=== PATIENT | male | born 1950 | race Caucasian/White ===

== ENCOUNTER → 2021-09-09 14:51 | Outpatient (BNVA) | payer MEDICARE, SELFPAY | PROVIDERS: PCP Physician Assistant; Visit Provider Psychiatry & Neurology Neurology | DX: G20 Parkinson's disease (principal); G47.52 REM sleep behavior disorder | CPT/HCPCS: 99212 ==

== ENCOUNTER → 2022-01-13 13:40 | Outpatient (BNVA) | payer MEDICARE, SELFPAY | PROVIDERS: PCP Physician Assistant; Visit Provider Psychiatry & Neurology Neurology | DX: G20 Parkinson's disease (principal); G47.52 REM sleep behavior disorder; K11.7 Disturbances of salivary secretion; F41.9 Anxiety disorder, unspecified; R42 Dizziness and giddiness | CPT/HCPCS: 99212 ==

== ENCOUNTER → 2022-03-06 15:22 | Outpatient (BNVA) | payer MEDICARE, SELFPAY | PROVIDERS: PCP Physician Assistant; Visit Provider Psychiatry & Neurology Neurology | DX: G20 Parkinson's disease (principal); G47.52 REM sleep behavior disorder; K11.7 Disturbances of salivary secretion; F41.9 Anxiety disorder, unspecified; R42 Dizziness and giddiness | CPT/HCPCS: 99212 ==

== ENCOUNTER → 2022-06-26 08:19 | Outpatient (BNVA) | payer MEDICARE, SELFPAY | PROVIDERS: PCP Physician Assistant; Visit Provider Psychiatry & Neurology Neurology | DX: K11.7 Disturbances of salivary secretion (principal) | CPT/HCPCS: 64611; 99211; J0585 ==

== ENCOUNTER → 2022-08-16 15:46 | Outpatient (BNVA) | payer MEDICARE, SELFPAY | PROVIDERS: PCP Physician Assistant; Visit Provider Psychiatry & Neurology Neurology | DX: G20 Parkinson's disease (principal); G47.52 REM sleep behavior disorder; K11.7 Disturbances of salivary secretion; F41.9 Anxiety disorder, unspecified; R42 Dizziness and giddiness | CPT/HCPCS: 99212 ==

== ENCOUNTER → 2022-10-25 07:16 | Outpatient (BNVA) | payer MEDICARE, SELFPAY | PROVIDERS: PCP Physician Assistant; Visit Provider Psychiatry & Neurology Neurology | DX: K11.7 Disturbances of salivary secretion (principal) | CPT/HCPCS: 64611; 99211; J0585 ==

== ENCOUNTER 2022-12-18 13:50 | Outpatient (AMB) | payer MEDICARE, SELFPAY ==
--- NOTE | 2022-12-18 13:52 | A.OFFVIS_ITS ---
Intake Vital Signs 12/18/22 13:53 Height 6 ft Weight 174 lb 6 oz BMI 23.6 BP 96/62 Blood Pressure Location Rt brachial Position Sitting Pulse 63 Pulse Source Pulse Oximeter Pulse Oximetry (%) 97 Oxygen Delivery Method Room Air Intake Visit Reasons: 4 mo f/u - Parkinson-lvm Intake Note: Patient presents for 4 month follow up Allergies No Known Allergies Allergy (Verified 12/18/22 13:54) Medication List - Last Reconciled 12/18/22 by Mary Amin MD carbidopa-levodopa 25-100 mg 2 tabs 7am,11am,3pm,7pm fluticasone propionate 50 mcg/actuation (Flonase Allergy Relief) 1 spray intranasal DAILY lorazepam 0.5 mg PO BID PRN MDD 2tabs magnesium oxide 400 mg PO BEDTIME onabotulinumtoxinA (Botox) to be injected by physician to salivary glands; polyethylene glycol 3350 (Miralax) 17 grams PO DAILY PRN venlafaxine ER (Effexor XR) 37.5 mg PO DAILY HPI HPI Comments History of Present Illness Details 72y/o male comes for follow up of parkinsons, REM behavior disorder.He reports excessive drooling. he reports difficulty sleeping due to leg cramps- he gets up walks .He wakes up 4 times a night. He is able to go back to sleep. His drooling decreased. No falls. speech is softer. He is independent in all his ADLs. He feels he does not feel good because of dizziness. 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 Mood is stable Memory is good No hallucinations He went to vestibular therapy for his vertigo and it helped. He also reports pain and stiffness in his extremities He does not exercise regularly [facility] Medical History Anxiety Arthritis Parkinson's disease REM behavioral disorder Tremors of nervous system Vertigo Surgical History Hx of bilateral hip replacements Family History Father Cancer Mother Depression Dementia Social History Household Members: Spouse Alcohol intake: former Patient Tobacco Use Status: Never used Tobacco Physical Exam Vital Signs: Last Vital Signs Pulse 63 12/18/22 13:53 BP 96/62 12/18/22 13:53 Pulse Ox 97 12/18/22 13:53 Oxygen Delivery Method Room Air 12/18/22 13:53 BMI result Body Mass Index 23.6 Const Orientation/consciousness: patient oriented x3 Neuro Other: UPDRS - 3 Severely decreased facial expression Speech 2.Monotone,slurred but understandable,moderately impaired Facial expression 0-normal 1-Minimal hypomimia, poker face 2-Slight but definite abnormal diminution of facial expression 3-Moderate hypomimia,lips parted some of the time 4-Masked or fixed facies withs evere loss of facialexpression, lips parted more than 1/4 inch Rest Tremors( head, Upper, lower ) 0- absent 1-Slight and infrequent 2-Mild in amplitude and persistent Left UE 3-Moderate in amplitude and present most of the time 4-Marked amplitude and present most of the time Action and Postural tremors 0-none 1-Slight with action 2-Moderate with action 3-Moderate with posture and action 4-Marked , interferes with feeding Rigidity 0-Absent 1-Slight or detectable only when activated by mirror movements 2-Mild to Moderate L>R 3-Marked, but full ROM achieved L>R 4-Severe, range of motion achieved with difficulty Finger Taps 0-normal 1-Mild slowing an gaby reductionin amplitude 2-Moderately impaired. Early fatiguing and occasional arrests in movement L>R 3-Severely impaired. Frequent hesitation in initiating movements or arrests in ongoing movement. 4-can barely perform the task Hand movements 0-normal 1-mild slowing and or reduction in amplitude 2-Moderately impaired.Definite and early fatiguing, may have occasional arrests in movement. 3-Severely impaired.Frequent hesitation in initiating or arrests in movement.L>R 4-can barely perform the task Rapid Alternating Movements of Hands 0-normal 1-Mild slowing and or reduction in amplitude 2-Moderately impaired.Definite and early fatiguing. 2-Moderately impaired. Definite and early fatiguing. May have occasional arrests in movement. 3-severely impaired.Frequent hesitation in initiating movements or arrests in ongoing movement. 4-can barely perform the task Leg agility 0-normal 1-mild slowing and reduction in amplitude 2-moderately impaired.Definite and early fatiguing , may have occasional arrest in movement. 3-severely impaired.Frequent hesitation in initiating movements or arrests in ongoing movement. 4-can barely perform the task Arising from a chair 0-Normal 1-Slow or may need more than 1 attempt 2-Pushes self up from arms of seat 3-Tends to fall back and may have to try more than one time,but can get up without difficulty 4-Unable to stand without help Posture 0-normal 1-slightly stooped, could be normal for an older person 2-moderately stooped posture, definitely abnormal, can be leaning to one side 3-severely stooped posture with kyphosis, can be moderately leaning to one side 4-Marked flexion with extreme abnormal posture Gait 0-normal 1-walks slowly,may shuffle with short steps, but no festination or propulsion 2-walks with difficulty,but requires little or no assistance, may have short steps, festination or propulsion 3-severe, needs assistance 4-cannot walk even with assistance Postural stability 0-normal 1-retropulsion but recovers unaided 2-absence of postural response,will fail if not caught by the examiner 3-very unstable,tends to lose balance spontaneously 4-unable to stand without assistance Body bradykinesia and hypokinesia 0-none 1-minimal slowness,giving movement a deliberate character,could be normal for some persons.Possible reduced amplitude 2-Mild degree of slowness and poverty of movement or some reduced amplitude 3-moderate slowness,poverty or small amplitude of movement 4-marked slowness, poverty or small amplitude of movement. General: patient oriented x3 Assessment & Plan Assessment & Plan (1) Parkinson's disease: Code(s): G20 - Parkinson's disease (2) REM behavioral disorder: Code(s): G47.52 - REM sleep behavior disorder Plan: he stopped melatonin - says his episodes are not as frequent (3) Drooling: Code(s): K11.7 - Disturbances of salivary secretion (4) Anxiety: Code(s): F41.9 - Anxiety disorder, unspecified (5) Dizziness: Code(s): R42 - Dizziness and giddiness Plan: orthostatic hypotension vs vertigo Plan sinemet 25/100 2 tabs qid - take last dose at 8pm instead of 7pm Increase caffiene and salt intake Continue botox for drooling Flonase for rhinorrhea Increase physical activity Medications: New magnesium oxide 400 mg PO BEDTIME 30 caps 6RF Changed From carbidopa-levodopa 25-100 mg orally; 1 tab at 7am 3pm 1.5 tabs 11am 7pm 150 tabs 6RF To carbidopa-levodopa 25-100 mg 2 tabs 7am,11am,3pm,7pm 240 tabs 6RF Coding Level of Care Code Est Pt Level 4 (80868) Diagnoses Parkinson's disease G20 REM behavioral disorder G47.52 Drooling K11.7 Anxiety F41.9 Dizziness R42
[2022-12-18 13:53] VITALS: BP 96/62; PULSE 63; O2SAT 97; BMI 23.6
== END 2022-12-18 14:16 | disposition home or self-care (01) ==
PROVIDERS: Visit Provider Psychiatry & Neurology Neurology
DX: G20 Parkinson's disease (principal); G47.52 REM sleep behavior disorder; K11.7 Disturbances of salivary secretion; F41.9 Anxiety disorder, unspecified; R42 Dizziness and giddiness
CPT/HCPCS: 99214

== ENCOUNTER → 2022-12-18 13:50 | Outpatient (BNVA) | payer MEDICARE, SELFPAY | PROVIDERS: Visit Provider Psychiatry & Neurology Neurology | DX: G20 Parkinson's disease (principal); G47.52 REM sleep behavior disorder; K11.7 Disturbances of salivary secretion; R42 Dizziness and giddiness; F41.9 Anxiety disorder, unspecified; Z96.643 Presence of artificial hip joint, bilateral | CPT/HCPCS: 99212 ==

== ENCOUNTER 2023-01-30 07:26 | Outpatient (AMB) | payer MEDICARE, SELFPAY ==
--- NOTE | 2023-01-30 07:30 | MHC.OFFVIS ---
Intake Vital Signs 01/30/23 07:35 Weight 166 lb 8 oz BP 130/88 Blood Pressure Location Rt brachial Position Sitting Pulse 60 Pulse Source Pulse Oximeter Pulse Oximetry (%) 100 Oxygen Delivery Method Room Air Intake Visit Reasons: Botox-confirmed Intake Note: Botox Injection, patient states he is super dizzy, also now has a pacemaker. [employer] Technical Operations Officer Required: No Allergies No Known Allergies Allergy (Verified 01/30/23 07:31) Medication List - Last Reconciled 01/30/23 by Mary Amin MD carbidopa-levodopa 25-100 mg 2 tabs 7am,11am,3pm,7pm fluticasone propionate 50 mcg/actuation (Flonase Allergy Relief) 1 spray intranasal DAILY lorazepam 0.5 mg PO BID PRN MDD 2tabs metoprolol tartrate 25 mg PO BID onabotulinumtoxinA (Botox) to be injected by physician to salivary glands; polyethylene glycol 3350 (Miralax) 17 grams PO DAILY PRN venlafaxine ER (Effexor XR) 75 mg PO DAILY HPI HPI Comments History of Present Illness Details 72y/o male comes for treatment of siallorhea with botox Botulinum toxin type A 100 units Lot no C [id number] Exp 01/2025 was diluted with 1 cc of normal saline at a concentration of 10 units in 0.1 cc. Side effects were discussed and an informed consent was obtained. Bilateral Parotid glands - 30 units each Bilateral submandibular glands 20 units each Total used- 100 units PFSH Medical History Pacemaker Anxiety Vertigo Parkinson's disease REM behavioral disorder Tremors of nervous system Arthritis Surgical History Hx of bilateral hip replacements Family History Father Cancer Mother Depression Dementia Social History Household Members: Spouse Alcohol intake: former Patient Tobacco Use Status: Never used Tobacco Physical Exam Vital Signs: Last Vital Signs Pulse 60 01/30/23 07:35 BP 130/88 01/30/23 07:35 Pulse Ox 100 01/30/23 07:35 Oxygen Delivery Method Room Air 01/30/23 07:35 Const General: cooperative, healthy appearing and comfortable HEENT Head: Yes normal to inspection and Yes normocephalic Office Procedures Botulinum toxin Injection 32225 - Salivary Glands Procedure code (CPT) selection complete Office Meds onabotulinumtoxinA 100 unit solution for injection Performing Provider: Mary Amin MD Performing Location: [facility] Administered by: Mary Amin MD on 01/30/23 09:14 Dose Route Admin Location Dispensed Lot Number Expiration Date [facility] Fluid Designer 100 unit subcut 100 units [id number] 01/12/25 1750-6444-51 ALLERGAN/BOTOX Comments: see hpi Assessment & Plan Assessment & Plan (1) Drooling: Code(s): K11.7 - Disturbances of salivary secretion Plan Patient tolerated the procedure well she will call with another side effects Orders: Orders AMB Botulinum toxin Injection Today K11.7 - Disturbances of salivary secretion Coding Level of Care Code Est Pt Level 1 (54184) Diagnoses Drooling K11.7 CPT Codes Botox Injection - Botox1: 72919 - Salivary Glands ([id number])
[2023-01-30 07:35] VITALS: BP 130/88; PULSE 60; O2SAT 100
== END 2023-01-30 08:12 | disposition home or self-care (01) ==
PROVIDERS: PCP Physician Assistant; Visit Provider Psychiatry & Neurology Neurology
DX: K11.7 Disturbances of salivary secretion (principal)
CPT/HCPCS: 64611

== ENCOUNTER → 2023-01-30 07:26 | Outpatient (BNVA) | payer MEDICARE, SELFPAY | PROVIDERS: PCP Physician Assistant; Visit Provider Psychiatry & Neurology Neurology | DX: K11.7 Disturbances of salivary secretion (principal) | CPT/HCPCS: 64611; 99211; J0585 ==

== ENCOUNTER 2023-03-12 14:36 | Outpatient (AMB) | payer MEDICARE, SELFPAY ==
--- NOTE | 2023-03-12 14:52 | MHC.OFFVIS ---
Intake Vital Signs 03/12/23 14:53 Height 6 ft Weight 164 lb 6 oz BMI 22.3 BP 122/64 Blood Pressure Location Lt brachial Position Sitting Respiration 17 Pulse 61 Pulse Source Pulse Oximeter Pulse Oximetry (%) 99 Oxygen Delivery Method Room Air Intake Visit Reasons: follow up (per MD)-CONFIRMED Intake Note: Pt presents to office for 1 month follow up for drooling. Pt is here with [place]. SHe reports he has been very anxious. SHe thinks it may be related to his carbidopa, since they've adjusted his anxiety meds and still have not seen a change. He is drooling excessively. Allergies No Known Allergies Allergy (Verified 03/12/23 14:53) Medication List - Last Reconciled 03/12/23 by Mary Amin MD carbidopa-levodopa 25-100 mg 2 tabs 7am,11am,3pm,7pm escitalopram oxalate 20 mg PO DAILY fluticasone propionate 50 mcg/actuation (Flonase Allergy Relief) 1 spray intranasal DAILY lorazepam 0.5 mg PO BID PRN MDD 2tabs metoprolol tartrate 25 mg PO BID onabotulinumtoxinA (Botox) to be injected by physician to salivary glands; polyethylene glycol 3350 (Miralax) 17 grams PO DAILY PRN HPI HPI Comments History of Present Illness Details 72y/o male comes for follow up of parkinsons, REM behavior disorder. He reports increasing anxiety with panic attacks in the last 3 weeks . His effexor was tapered and he was started on escitalopram 20mg qd. He reports increased dizziness throughout the day. botox did not help with drooling. he reports difficulty sleeping due to leg cramps- he gets up walks .He wakes up 4 times a night. He is able to go back to sleep. His drooling decreased. No falls. speech is softer. He is independent in all his ADLs. He feels he does not feel good because of dizziness. 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 Mood is stable Memory is good No hallucinations He went to vestibular therapy for his vertigo and it helped. He also reports pain and stiffness in his extremities He does not exercise regularly [facility] Medical History Pacemaker Anxiety Vertigo Parkinson's disease REM behavioral disorder Tremors of nervous system Arthritis Surgical History Hx of bilateral hip replacements Family History Father Cancer Mother Depression Dementia Social History Household Members: Spouse Alcohol intake: former Patient Tobacco Use Status: Never used Tobacco Physical Exam Vital Signs: Last Vital Signs Pulse 61 03/12/23 14:53 Resp 17 03/12/23 14:53 BP 122/64 03/12/23 14:53 Pulse Ox 99 03/12/23 14:53 Oxygen Delivery Method Room Air 03/12/23 14:53 BMI result Body Mass Index 22.3 Const General: cooperative Orientation/consciousness: patient oriented x3 Neuro Other: UPDRS - 3 Severely decreased facial expression, antecollis, restricted range of motion neck Speech 2.Monotone,slurred but understandable,moderately impaired Facial expression 0-normal 1-Minimal hypomimia, poker face 2-Slight but definite abnormal diminution of facial expression 3-Moderate hypomimia,lips parted some of the time 4-Masked or fixed facies withs evere loss of facialexpression, lips parted more than 1/4 inch Rest Tremors( head, Upper, lower ) 0- absent 1-Slight and infrequent 2-Mild in amplitude and persistent Left UE 3-Moderate in amplitude and present most of the time 4-Marked amplitude and present most of the time Action and Postural tremors 0-none 1-Slight with action 2-Moderate with action 3-Moderate with posture and action 4-Marked , interferes with feeding Rigidity 0-Absent 1-Slight or detectable only when activated by mirror movements 2-Mild to Moderate L>R 3-Marked, but full ROM achieved L>R 4-Severe, range of motion achieved with difficulty Finger Taps 0-normal 1-Mild slowing an gaby reductionin amplitude 2-Moderately impaired. Early fatiguing and occasional arrests in movement L>R 3-Severely impaired. Frequent hesitation in initiating movements or arrests in ongoing movement. 4-can barely perform the task Hand movements 0-normal 1-mild slowing and or reduction in amplitude 2-Moderately impaired.Definite and early fatiguing, may have occasional arrests in movement. 3-Severely impaired.Frequent hesitation in initiating or arrests in movement.L>R 4-can barely perform the task Rapid Alternating Movements of Hands 0-normal 1-Mild slowing and or reduction in amplitude 2-Moderately impaired.Definite and early fatiguing. 2-Moderately impaired. Definite and early fatiguing. May have occasional arrests in movement. 3-severely impaired.Frequent hesitation in initiating movements or arrests in ongoing movement. 4-can barely perform the task Leg agility 0-normal 1-mild slowing and reduction in amplitude 2-moderately impaired.Definite and early fatiguing , may have occasional arrest in movement. 3-severely impaired.Frequent hesitation in initiating movements or arrests in ongoing movement. 4-can barely perform the task Arising from a chair 0-Normal 1-Slow or may need more than 1 attempt 2-Pushes self up from arms of seat 3-Tends to fall back and may have to try more than one time,but can get up without difficulty 4-Unable to stand without help Posture 0-normal 1-slightly stooped, could be normal for an older person 2-moderately stooped posture, definitely abnormal, can be leaning to one side 3-severely stooped posture with kyphosis, can be moderately leaning to one side 4-Marked flexion with extreme abnormal posture Gait 0-normal 1-walks slowly,may shuffle with short steps, but no festination or propulsion 2-walks with difficulty,but requires little or no assistance, may have short steps, festination or propulsion 3-severe, needs assistance 4-cannot walk even with assistance Postural stability 0-normal 1-retropulsion but recovers unaided 2-absence of postural response,will fail if not caught by the examiner 3-very unstable,tends to lose balance spontaneously 4-unable to stand without assistance Body bradykinesia and hypokinesia 0-none 1-minimal slowness,giving movement a deliberate character,could be normal for some persons.Possible reduced amplitude 2-Mild degree of slowness and poverty of movement or some reduced amplitude 3-moderate slowness,poverty or small amplitude of movement 4-marked slowness, poverty or small amplitude of movement. General: patient oriented x3 Assessment & Plan Assessment & Plan (1) Parkinson's disease: Code(s): G20 - Parkinson's disease (2) REM behavioral disorder: Code(s): G47.52 - REM sleep behavior disorder Plan: he stopped melatonin - says his episodes are not as frequent (3) Drooling: Code(s): K11.7 - Disturbances of salivary secretion (4) Anxiety: Code(s): F41.9 - Anxiety disorder, unspecified (5) Dizziness: Code(s): R42 - Dizziness and giddiness Plan: orthostatic hypotension vs vertigo Plan Decrease sinemet 25/100 1.5 tabs qid - take last dose at 8pm instead of 7pm Increase caffiene and salt intake D/C botox for drooling Flonase for rhinorrhea Increase physical activity will trial him on clonazepam 0.5 mg qhs Medications: New clonazepam 1/2 tab administer 30 minutes before bedtime for 1 week and then 1 tab at bedtime 0.5 mg PO BEDTIME 30 tabs 2RF Changed From carbidopa-levodopa 25-100 mg 2 tabs 7am,11am,3pm,7pm 240 tabs 6RF To carbidopa-levodopa 25-100 mg 1.5 tabs 7am,11am,3pm,7pm 240 tabs 6RF Coding Level of Care Code Est Pt Level 4 (71638) Diagnoses Parkinson's disease G20 REM behavioral disorder G47.52 Drooling K11.7 Anxiety F41.9 Dizziness R42
[2023-03-12 14:53] VITALS: BP 122/64; PULSE 61; RESP 17; O2SAT 99; BMI 22.3
== END 2023-03-12 15:23 | disposition home or self-care (01) ==
PROVIDERS: PCP Physician Assistant; Visit Provider Psychiatry & Neurology Neurology
DX: G20.A1 Parkinson's disease without dyskinesia, without mention of fluctuations (principal); G47.52 REM sleep behavior disorder; K11.7 Disturbances of salivary secretion; F41.9 Anxiety disorder, unspecified; R42 Dizziness and giddiness
CPT/HCPCS: 99214

== ENCOUNTER → 2023-03-12 14:36 | Outpatient (BNVA) | payer MEDICARE, SELFPAY | PROVIDERS: PCP Physician Assistant; Visit Provider Psychiatry & Neurology Neurology | DX: G20.A1 Parkinson's disease without dyskinesia, without mention of fluctuations (principal); K11.7 Disturbances of salivary secretion; F41.9 Anxiety disorder, unspecified; R42 Dizziness and giddiness; G47.52 REM sleep behavior disorder | CPT/HCPCS: 99212 ==

== ENCOUNTER 2023-04-19 15:24 | Outpatient (AMB) | payer MEDICARE, SELFPAY ==
--- NOTE | 2023-04-19 15:30 | A.OFFVIS_ITS ---
Intake Vital Signs 04/19/23 15:31 Height 6 ft Weight 169 lb BMI 22.9 BP 98/62 Blood Pressure Location Rt brachial Position Sitting Respiration 16 Pulse 63 Pulse Source Pulse Oximeter Pulse Oximetry (%) 97 Oxygen Delivery Method Room Air Intake Visit Reasons: 4m f/u Parkinson - LVM Intake Note: Pt reports to the office for 4 month follow up for Parkinson's. Pt states he has been lousy, I'm always anxious and drooling . [employer] Required: No Allergies No Known Allergies Allergy (Verified 04/19/23 15:31) Medication List - Last Reconciled 04/19/23 by Mary Amin MD carbidopa-levodopa 25-100 mg 2 tabs PO QID clonazepam 0.5 mg PO BEDTIME droxidopa 100 mg PO TID escitalopram oxalate 20 mg PO DAILY fluticasone propionate 50 mcg/actuation (Flonase Allergy Relief) 1 spray intranasal DAILY glycopyrrolate 1 mg PO BID-TID PRN lorazepam 0.5 mg PO BID PRN MDD 2tabs metoprolol tartrate 25 mg PO BID polyethylene glycol 3350 (Miralax) 17 grams PO DAILY PRN HPI HPI Comments History of Present Illness Details 72y/o male comes for follow up of parveen sons, REM behavior disorder. He reports milder anxiety with clonazepam - usually in the evenings . He did not tolerate decrease in carbidopa/levodopa - his symptoms worsened ( he had more pain in his UE and legs) so he increased it back to 2 tab 4 times a day. His effexor was tapered and he was started on escitalopram 20mg qd. He reports increased dizziness throughout the day. He reports generalized weakness and generalized dizziness. botox did not help with drooling. he reports difficulty sleeping due to leg cramps- he gets up walks .He wakes up 4 times a night. He is able to go back to sleep. His drooling decreased. No falls. speech is softer. He is independent in all his ADLs. 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 Mood is stable Memory is good No hallucinations He went to vestibular therapy for his vertigo and it helped. He also reports pain and stiffness in his extremities He does not exercise regularly [facility] Medical History Pacemaker Anxiety Vertigo Parkinson's disease REM behavioral disorder Tremors of nervous system Arthritis Surgical History Hx of bilateral hip replacements Family History Father Cancer Mother Depression Dementia Social History Household Members: Spouse Alcohol intake: former Patient Tobacco Use Status: Never used Tobacco Physical Exam Vital Signs: Last Vital Signs Pulse 63 04/19/23 15:31 Resp 16 04/19/23 15:31 BP 98/62 04/19/23 15:31 Pulse Ox 97 04/19/23 15:31 Oxygen Delivery Method Room Air 04/19/23 15:31 BMI result Body Mass Index 22.9 Const General: cooperative Orientation/consciousness: patient oriented x3 Neuro Other: UPDRS - 3 Severely decreased facial expression, antecollis, restricted range of motion neck Speech 2.Monotone,slurred but understandable,moderately impaired Facial expression 0-normal 1-Minimal hypomimia, poker face 2-Slight but definite abnormal diminution of facial expression 3-Moderate hypomimia,lips parted some of the time 4-Masked or fixed facies withs evere loss of facialexpression, lips parted more than 1/4 inch Rest Tremors( head, Upper, lower ) 0- absent 1-Slight and infrequent 2-Mild in amplitude and persistent Left UE 3-Moderate in amplitude and present most of the time 4-Marked amplitude and present most of the time Action and Postural tremors 0-none 1-Slight with action 2-Moderate with action 3-Moderate with posture and action 4-Marked , interferes with feeding Rigidity 0-Absent 1-Slight or detectable only when activated by mirror movements 2-Mild to Moderate L>R 3-Marked, but full ROM achieved L>R 4-Severe, range of motion achieved with difficulty Finger Taps 0-normal 1-Mild slowing an gaby reductionin amplitude 2-Moderately impaired. Early fatiguing and occasional arrests in movement L>R 3-Severely impaired. Frequent hesitation in initiating movements or arrests in ongoing movement. 4-can barely perform the task Hand movements 0-normal 1-mild slowing and or reduction in amplitude 2-Moderately impaired.Definite and early fatiguing, may have occasional arrests in movement. 3-Severely impaired.Frequent hesitation in initiating or arrests in movement.L>R 4-can barely perform the task Rapid Alternating Movements of Hands 0-normal 1-Mild slowing and or reduction in amplitude 2-Moderately impaired.Definite and early fatiguing. 2-Moderately impaired. Definite and early fatiguing. May have occasional arrests in movement. 3-severely impaired.Frequent hesitation in initiating movements or arrests in ongoing movement. 4-can barely perform the task Leg agility 0-normal 1-mild slowing and reduction in amplitude 2-moderately impaired.Definite and early fatiguing , may have occasional arrest in movement. 3-severely impaired.Frequent hesitation in initiating movements or arrests in ongoing movement. 4-can barely perform the task Arising from a chair 0-Normal 1-Slow or may need more than 1 attempt 2-Pushes self up from arms of seat 3-Tends to fall back and may have to try more than one time,but can get up without difficulty 4-Unable to stand without help Posture 0-normal 1-slightly stooped, could be normal for an older person 2-moderately stooped posture, definitely abnormal, can be leaning to one side 3-severely stooped posture with kyphosis, can be moderately leaning to one side 4-Marked flexion with extreme abnormal posture Gait 0-normal 1-walks slowly,may shuffle with short steps, but no festination or propulsion 2-walks with difficulty,but requires little or no assistance, may have short steps, festination or propulsion 3-severe, needs assistance 4-cannot walk even with assistance Postural stability 0-normal 1-retropulsion but recovers unaided 2-absence of postural response,will fail if not caught by the examiner 3-very unstable,tends to lose balance spontaneously 4-unable to stand without assistance Body bradykinesia and hypokinesia 0-none 1-minimal slowness,giving movement a deliberate character,could be normal for some persons.Possible reduced amplitude 2-Mild degree of slowness and poverty of movement or some reduced amplitude 3-moderate slowness,poverty or small amplitude of movement 4-marked slowness, poverty or small amplitude of movement. General: patient oriented x3 Assessment & Plan Assessment & Plan (1) Parkinson's disease: Code(s): G20 - Parkinson's disease (2) REM behavioral disorder: Code(s): G47.52 - REM sleep behavior disorder Plan: he stopped melatonin - says his episodes are not as frequent (3) Drooling: Code(s): K11.7 - Disturbances of salivary secretion (4) Anxiety: Code(s): F41.9 - Anxiety disorder, unspecified (5) Dizziness: Code(s): R42 - Dizziness and giddiness Plan: orthostatic hypotension vs vertigo Plan sinemet 25/100 2 tabs qid - take last dose at 8pm instead of 7pm Increase caffiene and salt intake D/C botox for drooling Flonase for rhinorrhea Increase physical activity clonazepam 0.5 mg 1/2 tab bid Droxidopa 100mg tid - last dose 3 hrs before bedtime glycopyrrolate 1mg bid as needed for sialorhea Medications: New glycopyrrolate 1 mg PO BID-TID PRN 90 tabs 0RF secretions droxidopa give consistently with OR without food, upon rising, at midday, late PM/at least 3hrs before bedtime 100 mg PO TID 90 caps 1RF Coding Level of Care Code Est Pt Level 5 (16778) Diagnoses Parkinson's disease G20 REM behavioral disorder G47.52 Drooling K11.7 Anxiety F41.9 Dizziness R42
[2023-04-19 15:31] VITALS: BP 98/62; PULSE 63; RESP 16; O2SAT 97; BMI 22.9
== END 2023-04-19 16:00 | disposition home or self-care (01) ==
PROVIDERS: PCP Physician Assistant; Visit Provider Psychiatry & Neurology Neurology
DX: G20.A1 Parkinson's disease without dyskinesia, without mention of fluctuations (principal); G47.52 REM sleep behavior disorder; K11.7 Disturbances of salivary secretion; F41.9 Anxiety disorder, unspecified; R42 Dizziness and giddiness
CPT/HCPCS: 99214

== ENCOUNTER → 2023-04-19 15:24 | Outpatient (BNVA) | payer MEDICARE, SELFPAY | PROVIDERS: PCP Physician Assistant; Visit Provider Psychiatry & Neurology Neurology | DX: G20.A1 Parkinson's disease without dyskinesia, without mention of fluctuations (principal); G47.52 REM sleep behavior disorder; K11.7 Disturbances of salivary secretion; F41.9 Anxiety disorder, unspecified; R42 Dizziness and giddiness | CPT/HCPCS: 99212 ==

== ENCOUNTER 2023-07-23 07:53 | Outpatient (AMB) | payer MEDICARE, SELFPAY ==
--- NOTE | 2023-07-23 08:00 | MHC.OFFVIS ---
Intake Vital Signs 07/23/23 08:01 Height 6 ft Weight 171 lb BMI 23.2 BP 122/74 Blood Pressure Location Rt brachial Position Sitting Pulse 52 Pulse Source Pulse Oximeter Pulse Oximetry (%) 100 Oxygen Delivery Method Room Air Intake Visit Reasons: 4 Month F/U- CONF Intake Note: Patient presents for 4 month follow up. Allergies No Known Allergies Allergy (Verified 07/23/23 08:03) Medication List - Last Reconciled 07/23/23 by Mary Amin MD carbidopa-levodopa 25-100 mg 2 tabs PO QID clonazepam 0.5 mg PO BEDTIME droxidopa 100 mg PO TID escitalopram oxalate 20 mg PO DAILY fluticasone propionate 50 mcg/actuation (Flonase Allergy Relief) 1 spray intranasal DAILY glycopyrrolate 1 mg PO BID-TID PRN lactulose 10 - 20 grams (15 - 30 mL) PO BEDTIME PRN 90 days lorazepam 0.5 mg PO BID PRN MDD 2tabs metoprolol tartrate 25 mg PO BID midodrine 2.5 mg PO TID 90 days polyethylene glycol 3350 (Miralax) 17 grams PO DAILY PRN HPI HPI Comments History of Present Illness Details 72y/o male comes for follow up of parkinsons, REM behavior disorder. He reports milder anxiety with clonazepam - usually in the evenings . His effexor was tapered and he was started on escitalopram 20mg qd. His dizziness is better with midodrine . droxidopa was not approved. He also switched to caffienated drinks and increased fluids His bowel movements are better with change in diet- increased fiber intake 1-2 kiwis a day. botox did not help with drooling. He is able to go back to sleep. His leg cramps are better. His drooling decreased. No falls. speech is softer. He is independent in all his ADLs. 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 Mood is stable Memory is good No hallucinations He is exercising regularly. FORMERLY [facility], [facility] Medical History (Updated 07/23/23 @ 08:15 by Mary Amin MD) Parkinson's disease with neurogenic orthostatic hypotension Pacemaker Anxiety Vertigo Parkinson's disease REM behavioral disorder Tremors of nervous system Arthritis Surgical History Hx of bilateral hip replacements Family History Father Cancer Mother Depression Dementia Social History Household Members: Spouse Alcohol intake: former Patient Tobacco Use Status: Never used Tobacco Physical Exam Vital Signs: Last Vital Signs Pulse 52 07/23/23 08:01 BP 122/74 07/23/23 08:01 Pulse Ox 100 07/23/23 08:01 Oxygen Delivery Method Room Air 07/23/23 08:01 BMI result Body Mass Index 23.2 Const General: cooperative Orientation/consciousness: patient oriented x3 Neuro Other: UPDRS - 3 moderately decreased facial expression, antecollis, restricted range of motion neck Mild dyskinesia Speech 2.Monotone,slurred but understandable,moderately impaired Facial expression 0-normal 1-Minimal hypomimia, poker face 2-Slight but definite abnormal diminution of facial expression 3-Moderate hypomimia,lips parted some of the time 4-Masked or fixed facies withs evere loss of facialexpression, lips parted more than 1/4 inch Rest Tremors( head, Upper, lower ) 0- absent 1-Slight and infrequent 2-Mild in amplitude and persistent Left UE 3-Moderate in amplitude and present most of the time 4-Marked amplitude and present most of the time Action and Postural tremors 0-none 1-Slight with action 2-Moderate with action 3-Moderate with posture and action 4-Marked , interferes with feeding Rigidity 0-Absent 1-Slight or detectable only when activated by mirror movements 2-Mild to Moderate L>R 3-Marked, but full ROM achieved L>R 4-Severe, range of motion achieved with difficulty Finger Taps 0-normal 1-Mild slowing an gaby reductionin amplitude 2-Moderately impaired. Early fatiguing and occasional arrests in movement L>R 3-Severely impaired. Frequent hesitation in initiating movements or arrests in ongoing movement. 4-can barely perform the task Hand movements 0-normal 1-mild slowing and or reduction in amplitude 2-Moderately impaired.Definite and early fatiguing, may have occasional arrests in movement. 3-Severely impaired.Frequent hesitation in initiating or arrests in movement.L>R 4-can barely perform the task Rapid Alternating Movements of Hands 0-normal 1-Mild slowing and or reduction in amplitude 2-Moderately impaired.Definite and early fatiguing. 2-Moderately impaired. Definite and early fatiguing. May have occasional arrests in movement. 3-severely impaired.Frequent hesitation in initiating movements or arrests in ongoing movement. 4-can barely perform the task Leg agility 0-normal 1-mild slowing and reduction in amplitude 2-moderately impaired.Definite and early fatiguing , may have occasional arrest in movement. 3-severely impaired.Frequent hesitation in initiating movements or arrests in ongoing movement. 4-can barely perform the task Arising from a chair 0-Normal 1-Slow or may need more than 1 attempt 2-Pushes self up from arms of seat 3-Tends to fall back and may have to try more than one time,but can get up without difficulty 4-Unable to stand without help Posture 0-normal 1-slightly stooped, could be normal for an older person 2-moderately stooped posture, definitely abnormal, can be leaning to one side 3-severely stooped posture with kyphosis, can be moderately leaning to one side 4-Marked flexion with extreme abnormal posture Gait 0-normal 1-walks slowly,may shuffle with short steps, but no festination or propulsion 2-walks with difficulty,but requires little or no assistance, may have short steps, festination or propulsion 3-severe, needs assistance 4-cannot walk even with assistance Postural stability 0-normal 1-retropulsion but recovers unaided 2-absence of postural response,will fail if not caught by the examiner 3-very unstable,tends to lose balance spontaneously 4-unable to stand without assistance Body bradykinesia and hypokinesia 0-none 1-minimal slowness,giving movement a deliberate character,could be normal for some persons.Possible reduced amplitude 2-Mild degree of slowness and poverty of movement or some reduced amplitude 3-moderate slowness,poverty or small amplitude of movement 4-marked slowness, poverty or small amplitude of movement. General: patient oriented x3 Assessment & Plan Assessment & Plan (1) Parkinson's disease with neurogenic orthostatic hypotension: Code(s): G90.3 - Multi-system degeneration of the autonomic nervous system (2) REM behavioral disorder: Code(s): G47.52 - REM sleep behavior disorder Plan: he stopped melatonin - says his episodes are not as frequent (3) Drooling: Code(s): K11.7 - Disturbances of salivary secretion (4) Anxiety: Code(s): F41.9 - Anxiety disorder, unspecified Plan sinemet 25/100 2 tabs qid - take last dose at 8pm instead of 7pm Increase caffiene and salt intake D/C botox for drooling Increase physical activity clonazepam 0.5 mg 1/2 tab bid Midodrine 2.5 mg 7am 11am 3pm glycopyrrolate 1mg bid as needed for sialorhea- helping Coding Level of Care Code Est Pt Level 5 (13221) Diagnoses Parkinson's disease with neurogenic orthostatic hypotension G90.3 REM behavioral disorder G47.52 Drooling K11.7 Anxiety F41.9
[2023-07-23 08:01] VITALS: BP 122/74; PULSE 52; O2SAT 100; BMI 23.2
== END 2023-07-23 08:33 | disposition home or self-care (01) ==
PROVIDERS: PCP Physician Assistant; Visit Provider Psychiatry & Neurology Neurology
DX: G20.B1 Parkinson's disease with dyskinesia, without mention of fluctuations (principal); G90.3 Multi-system degeneration of the autonomic nervous system; G47.52 REM sleep behavior disorder; K11.7 Disturbances of salivary secretion; F41.9 Anxiety disorder, unspecified
CPT/HCPCS: 99215

== ENCOUNTER → 2023-07-23 07:53 | Outpatient (BNVA) | payer MEDICARE, SELFPAY | PROVIDERS: PCP Physician Assistant; Visit Provider Psychiatry & Neurology Neurology | DX: G90.3 Multi-system degeneration of the autonomic nervous system (principal); G47.52 REM sleep behavior disorder; K11.7 Disturbances of salivary secretion; F41.9 Anxiety disorder, unspecified | CPT/HCPCS: 99212 ==

== ENCOUNTER 2023-11-22 14:20 | Outpatient (AMB) | payer MEDICARE, SELFPAY ==
--- NOTE | 2023-11-22 14:29 | A.OFFVIS_ITS ---
Vital Signs 11/22/23 14:30 Weight 159 lb BP 132/72 Blood Pressure Location Rt brachial Position Sitting Respiration 16 Pulse 60 Pulse Source Pulse Oximeter Pulse Oximetry (%) 98 Oxygen Delivery Method Room Air Intake Visit Reasons: follow up parkinsons - Confirmed Intake Note: Pt presents tot he office for a 4 month follow up for Parkinson's. Pt c/o increase in lag cramps, loss of appetite. [employer] Required: No Allergies No Known Allergies Allergy (Verified 11/22/23 14:29) Medication List - Last Reconciled 11/22/23 by Mary Amin MD carbidopa-levodopa 25-100 mg 2 tabs PO QID clonazepam 0.5 mg PO BEDTIME droxidopa 100 mg PO TID escitalopram oxalate 20 mg PO DAILY fluticasone propionate 50 mcg/actuation (Flonase Allergy Relief) 1 spray intranasal DAILY glycopyrrolate 1 mg PO BID-TID PRN lactulose 10 - 20 grams (15 - 30 mL) PO BEDTIME PRN 90 days lorazepam 0.5 mg PO BID PRN MDD 2tabs metoprolol tartrate 25 mg PO BID midodrine 2.5 mg PO TID 90 days polyethylene glycol 3350 (Miralax) 17 grams PO DAILY PRN HPI Comments Details: 73y/o male comes for follow up of parkinsons, REM behavior disorder. He reports increasing in anxiety. His sodium was low so he is taking liquid IV He also reports increase in his leg cramps He is on escitalopram 20mg qd. His dizziness is better with midodrine . droxidopa was not approved. His bowel movements are better with change in diet- increased fiber intake 1-2 kiwis a day. botox did not help with drooling. He is able to go back to sleep. His leg cramps are better. His drooling decreased. No falls. speech is softer. He is independent in all his ADLs. 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 Mood is stable Memory is good No hallucinations He is exercising regularly. [facility] Medical History Parkinson's disease with neurogenic orthostatic hypotension Pacemaker Anxiety Vertigo Parkinson's disease REM behavioral disorder Tremors of nervous system Arthritis Surgical History Hx of bilateral hip replacements Family History Father Cancer Mother Depression Dementia Social History Household Members: Spouse Alcohol intake: former Patient Tobacco Use Status: Never used Tobacco Physical Exam Vital Signs: Last Vital Signs Pulse 60 11/22/23 14:30 Resp 16 11/22/23 14:30 BP 132/72 11/22/23 14:30 Pulse Ox 98 11/22/23 14:30 Oxygen Delivery Method Room Air 11/22/23 14:30 Const General: cooperative Orientation/consciousness: patient oriented x3 Neuro Other: UPDRS - 3 moderately decreased facial expression, antecollis, restricted range of motion neck Mild dyskinesia Speech 2.Monotone,slurred but understandable,moderately impaired Facial expression 0-normal 1-Minimal hypomimia, poker face 2-Slight but definite abnormal diminution of facial expression 3-Moderate hypomimia,lips parted some of the time 4-Masked or fixed facies withs evere loss of facialexpression, lips parted more than 1/4 inch Rest Tremors( head, Upper, lower ) 0- absent 1-Slight and infrequent 2-Mild in amplitude and persistent Left UE 3-Moderate in amplitude and present most of the time 4-Marked amplitude and present most of the time Action and Postural tremors 0-none 1-Slight with action 2-Moderate with action 3-Moderate with posture and action 4-Marked , interferes with feeding Rigidity 0-Absent 1-Slight or detectable only when activated by mirror movements 2-Mild to Moderate L>R 3-Marked, but full ROM achieved L>R 4-Severe, range of motion achieved with difficulty Finger Taps 0-normal 1-Mild slowing an gaby reductionin amplitude 2-Moderately impaired. Early fatiguing and occasional arrests in movement L>R 3-Severely impaired. Frequent hesitation in initiating movements or arrests in ongoing movement. 4-can barely perform the task Hand movements 0-normal 1-mild slowing and or reduction in amplitude 2-Moderately impaired.Definite and early fatiguing, may have occasional arrests in movement. 3-Severely impaired.Frequent hesitation in initiating or arrests in movement.L>R 4-can barely perform the task Rapid Alternating Movements of Hands 0-normal 1-Mild slowing and or reduction in amplitude 2-Moderately impaired.Definite and early fatiguing. 2-Moderately impaired. Definite and early fatiguing. May have occasional arrests in movement. 3-severely impaired.Frequent hesitation in initiating movements or arrests in ongoing movement. 4-can barely perform the task Leg agility 0-normal 1-mild slowing and reduction in amplitude 2-moderately impaired.Definite and early fatiguing , may have occasional arrest in movement. 3-severely impaired.Frequent hesitation in initiating movements or arrests in ongoing movement. 4-can barely perform the task Arising from a chair 0-Normal 1-Slow or may need more than 1 attempt 2-Pushes self up from arms of seat 3-Tends to fall back and may have to try more than one time,but can get up without difficulty 4-Unable to stand without help Posture 0-normal 1-slightly stooped, could be normal for an older person 2-moderately stooped posture, definitely abnormal, can be leaning to one side 3-severely stooped posture with kyphosis, can be moderately leaning to one side 4-Marked flexion with extreme abnormal posture Gait 0-normal 1-walks slowly,may shuffle with short steps, but no festination or propulsion 2-walks with difficulty,but requires little or no assistance, may have short steps, festination or propulsion 3-severe, needs assistance 4-cannot walk even with assistance Postural stability 0-normal 1-retropulsion but recovers unaided 2-absence of postural response,will fail if not caught by the examiner 3-very unstable,tends to lose balance spontaneously 4-unable to stand without assistance Body bradykinesia and hypokinesia 0-none 1-minimal slowness,giving movement a deliberate character,could be normal for some persons.Possible reduced amplitude 2-Mild degree of slowness and poverty of movement or some reduced amplitude 3-moderate slowness,poverty or small amplitude of movement 4-marked slowness, poverty or small amplitude of movement. General: patient oriented x3 Assessment & Plan Assessment & Plan (1) Parkinson's disease with neurogenic orthostatic hypotension: Code(s): G90.3 - Multi-system degeneration of the autonomic nervous system Category: Medical (2) REM behavioral disorder: Code(s): G47.52 - REM sleep behavior disorder Category: Medical Plan: he stopped melatonin - says his episodes are not as frequent (3) Drooling: Code(s): K11.7 - Disturbances of salivary secretion Category: Medical (4) Anxiety: Code(s): F41.9 - Anxiety disorder, unspecified Category: Medical Plan sinemet 25/ 2 tabs qid - take last dose at 8pm instead of 7pm Increase caffiene and salt intake Increase physical activity clonazepam 0.5 mg 1tab bid Midodrine 2.5 mg 7am 11am 3pm glycopyrrolate 1mg bid as needed for sialorhea- helping escitalopram 20mg qd will trial mirtazapine 7,5 mg qhs Medications: New mirtazapine 7.5 mg PO BEDTIME 30 tabs 6RF Changed From clonazepam 1/2 tab administer 30 minutes before bedtime for 1 week and then 1 tab at bedtime 0.5 mg PO BEDTIME 30 tabs 2RF To clonazepam 1 mg (2 x 0.5 mg) PO BEDTIME 60 tabs 2RF Coding Level of Care Code Est Pt Level 4 (70327) Complex EM visit Add On G2211 Diagnoses Parkinson's disease with neurogenic orthostatic hypotension G90.3 REM behavioral disorder G47.52 Drooling K11.7 Anxiety F41.9
[2023-11-22 14:30] VITALS: BP 132/72; PULSE 60; RESP 16; O2SAT 98
== END 2023-11-22 15:03 | disposition home or self-care (01) ==
PROVIDERS: PCP Physician Assistant; Visit Provider Psychiatry & Neurology Neurology
DX: G90.3 Multi-system degeneration of the autonomic nervous system (principal); G47.52 REM sleep behavior disorder; K11.7 Disturbances of salivary secretion; F41.9 Anxiety disorder, unspecified
CPT/HCPCS: 99214; G2211

== ENCOUNTER → 2023-11-22 14:20 | Outpatient (BNVA) | payer MEDICARE, SELFPAY | PROVIDERS: PCP Physician Assistant; Visit Provider Psychiatry & Neurology Neurology | DX: G90.3 Multi-system degeneration of the autonomic nervous system (principal); G47.52 REM sleep behavior disorder; K11.7 Disturbances of salivary secretion; F41.9 Anxiety disorder, unspecified | CPT/HCPCS: 99212 ==

== ENCOUNTER 2024-03-31 12:26 | Outpatient (AMB) | payer MEDICARE, SELFPAY ==
[2024-03-31 12:37] VITALS: BMI 21.3
--- NOTE | 2024-03-31 12:37 | A.OFFVIS_ITS ---
Vital Signs 03/31/24 12:37 Height 6 ft Weight 157 lb BMI 21.3 Intake Visit Reasons: follow up parkinsons Intake Note: Patient presents for follow up parkinson's. problem swallowing and slurring words Allergies No Known Allergies Allergy (Verified 03/31/24 12:40) Medication List - Last Reconciled 03/31/24 by Mary Amin MD carbidopa-levodopa 25-100 mg 2 tabs PO .5 times a day clonazepam 1 mg (2 x 0.5 mg) PO BEDTIME droxidopa 100 mg PO TID escitalopram oxalate 20 mg PO DAILY fluticasone propionate 50 mcg/actuation (Flonase Allergy Relief) 1 spray intranasal DAILY glycopyrrolate 1 mg PO BID-TID PRN lactulose 10 - 20 grams (15 - 30 mL) PO BEDTIME PRN 90 days lorazepam 0.5 mg PO BID PRN MDD 2tabs metoprolol tartrate 25 mg PO BID midodrine 5 mg PO TID 90 days mirtazapine 7.5 mg PO BEDTIME omeprazole 20 mg PO DAILY polyethylene glycol 3350 (Miralax) 17 grams PO DAILY PRN HPI Comments Details: 73y/o male comes for follow up of parkinsons, REM behavior disorder. He reports worsening of his swallowing and has more GERD symptoms.He still has a lot of drooling.He is more anxious His sodium was low so he is taking liquid IV He also reports increase in his leg cramps He is on escitalopram 20mg qd. His dizziness is better with midodrine . droxidopa was not approved. His bowel movements are better with change in diet- increased fiber intake 1-2 kiwis a day. botox did not help with drooling. He is able to go back to sleep. His leg cramps are better. His drooling decreased. No falls. speech is softer. He is independent in all his ADLs. 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 Mood is stable Memory is good No hallucinations He is exercising regularly. [facility] Medical History Parkinson's disease with neurogenic orthostatic hypotension Pacemaker Anxiety Vertigo Parkinson's disease REM behavioral disorder Tremors of nervous system Arthritis Surgical History Hx of bilateral hip replacements Family History Father Cancer Mother Depression Dementia Social History Household Members: Spouse Alcohol intake: former Patient Tobacco Use Status: Never used Tobacco Physical Exam Vital Signs: BMI result Body Mass Index 21.3 Const General: cooperative Orientation/consciousness: patient oriented x3 Neuro Other: UPDRS - 3 moderately decreased facial expression, antecollis, restricted range of motion neck Mild dyskinesia Speech 2.Monotone,slurred but understandable,moderately impaired Facial expression 0-normal 1-Minimal hypomimia, poker face 2-Slight but definite abnormal diminution of facial expression 3-Moderate hypomimia,lips parted some of the time 4-Masked or fixed facies withs evere loss of facialexpression, lips parted more than 1/4 inch Rest Tremors( head, Upper, lower ) 0- absent 1-Slight and infrequent 2-Mild in amplitude and persistent Left UE 3-Moderate in amplitude and present most of the time 4-Marked amplitude and present most of the time Action and Postural tremors 0-none 1-Slight with action 2-Moderate with action 3-Moderate with posture and action 4-Marked , interferes with feeding Rigidity 0-Absent 1-Slight or detectable only when activated by mirror movements 2-Mild to Moderate L>R 3-Marked, but full ROM achieved L>R 4-Severe, range of motion achieved with difficulty Finger Taps 0-normal 1-Mild slowing an gaby reductionin amplitude 2-Moderately impaired. Early fatiguing and occasional arrests in movement L>R 3-Severely impaired. Frequent hesitation in initiating movements or arrests in ongoing movement. 4-can barely perform the task Hand movements 0-normal 1-mild slowing and or reduction in amplitude 2-Moderately impaired.Definite and early fatiguing, may have occasional arrests in movement. 3-Severely impaired.Frequent hesitation in initiating or arrests in movement.L>R 4-can barely perform the task Rapid Alternating Movements of Hands 0-normal 1-Mild slowing and or reduction in amplitude 2-Moderately impaired.Definite and early fatiguing. 2-Moderately impaired. Definite and early fatiguing. May have occasional arrests in movement. 3-severely impaired.Frequent hesitation in initiating movements or arrests in ongoing movement. 4-can barely perform the task Leg agility 0-normal 1-mild slowing and reduction in amplitude 2-moderately impaired.Definite and early fatiguing , may have occasional arrest in movement. 3-severely impaired.Frequent hesitation in initiating movements or arrests in ongoing movement. 4-can barely perform the task Arising from a chair 0-Normal 1-Slow or may need more than 1 attempt 2-Pushes self up from arms of seat 3-Tends to fall back and may have to try more than one time,but can get up without difficulty 4-Unable to stand without help Posture 0-normal 1-slightly stooped, could be normal for an older person 2-moderately stooped posture, definitely abnormal, can be leaning to one side 3-severely stooped posture with kyphosis, can be moderately leaning to one side 4-Marked flexion with extreme abnormal posture Gait 0-normal 1-walks slowly,may shuffle with short steps, but no festination or propulsion 2-walks with difficulty,but requires little or no assistance, may have short steps, festination or propulsion 3-severe, needs assistance 4-cannot walk even with assistance Postural stability 0-normal 1-retropulsion but recovers unaided 2-absence of postural response,will fail if not caught by the examiner 3-very unstable,tends to lose balance spontaneously 4-unable to stand without assistance Body bradykinesia and hypokinesia 0-none 1-minimal slowness,giving movement a deliberate character,could be normal for some persons.Possible reduced amplitude 2-Mild degree of slowness and poverty of movement or some reduced amplitude 3-moderate slowness,poverty or small amplitude of movement 4-marked slowness, poverty or small amplitude of movement. General: patient oriented x3 Assessment & Plan Assessment & Plan (1) Parkinson's disease with neurogenic orthostatic hypotension: Code(s): G90.3 - Multi-system degeneration of the autonomic nervous system Category: Medical (2) REM behavioral disorder: Code(s): G47.52 - REM sleep behavior disorder Category: Medical Plan: he stopped melatonin - says his episodes are not as frequent (3) Drooling: Code(s): K11.7 - Disturbances of salivary secretion Category: Medical (4) Anxiety: Code(s): F41.9 - Anxiety disorder, unspecified Category: Medical Plan Increase sinemet 25/100 2 tabs 5 times a day- 7am,10am,1pm,4pm,7pm Increase caffiene and salt intake Increase physical activity clonazepam 0.5 mg 1tab bid Increase Midodrine 5 mg 7am 11am 3pm escitalopram 20mg qd mirtazapine 7,5 mg qhs will consider rytary Medications: Changed From midodrine do not give last dose of day after 6PM or within 4 hrs of bedtime 2.5 mg PO TID 90 days 270 tabs 1RF To midodrine do not give last dose of day after 6PM or within 4 hrs of bedtime 5 mg PO TID 90 days 270 tabs 1RF From carbidopa-levodopa 25-100 mg 2 tabs PO QID 240 tabs 6RF To carbidopa-levodopa 25-100 mg 2 tabs PO .5 times a day 300 tabs 6RF Coding Level of Care Code Est Pt Level 4 (41908) Complex EM visit Add On G2211 Diagnoses Parkinson's disease with neurogenic orthostatic hypotension G90.3 REM behavioral disorder G47.52 Drooling K11.7 Anxiety F41.9
== END 2024-03-31 13:12 | disposition home or self-care (01) ==
PROVIDERS: PCP Physician Assistant; Visit Provider Psychiatry & Neurology Neurology
DX: G90.3 Multi-system degeneration of the autonomic nervous system (principal); G47.52 REM sleep behavior disorder; K11.7 Disturbances of salivary secretion; F41.9 Anxiety disorder, unspecified
CPT/HCPCS: 99214; G2211

== ENCOUNTER → 2024-03-31 12:26 | Outpatient (BNVA) | payer MEDICARE, SELFPAY | PROVIDERS: PCP Physician Assistant; Visit Provider Psychiatry & Neurology Neurology | DX: G90.3 Multi-system degeneration of the autonomic nervous system (principal); G20.A1 Parkinson's disease without dyskinesia, without mention of fluctuations; G47.52 REM sleep behavior disorder; K11.7 Disturbances of salivary secretion; F41.9 Anxiety disorder, unspecified; K21.9 Gastro-esophageal reflux disease without esophagitis; R13.10 Dysphagia, unspecified | CPT/HCPCS: 99212 ==

== ENCOUNTER 2024-07-07 13:10 | Outpatient (AMB) | payer MEDICARE, SELFPAY ==
--- NOTE | 2024-07-07 13:19 | A.OFFVIS_ITS ---
Vital Signs 07/07/24 13:20 Height 6 ft Weight 158 lb BMI 21.4 BP 118/88 Blood Pressure Location Rt brachial Position Sitting Pulse 60 Pulse Source Pulse Oximeter Pulse Oximetry (%) 100 Oxygen Delivery Method Room Air Intake Visit Reasons: follow up parkinsons Intake Note: Patient following up on midodrine increase. Allergies No Known Allergies Allergy (Verified 07/07/24 13:22) Medication List - Last Reconciled 07/07/24 by Mary Amin MD carbidopa-levodopa 25-100 mg 2 tabs PO .5 times a day clonazepam 0.5 mg PO TID droxidopa 100 mg PO TID escitalopram oxalate 20 mg PO DAILY fluticasone propionate 50 mcg/actuation (Flonase Allergy Relief) 1 spray intranasal DAILY glycopyrrolate 1 mg PO BID lactulose 10 - 20 grams (15 - 30 mL) PO BEDTIME PRN 90 days lorazepam 0.5 mg PO BID PRN MDD 2tabs metoprolol tartrate 25 mg PO BID midodrine 5 mg PO TID 90 days mirtazapine 15 mg PO BEDTIME mirtazapine 15 mg PO BEDTIME omeprazole 20 mg PO DAILY polyethylene glycol 3350 (Miralax) 17 grams PO DAILY PRN HPI Comments Details: 73y/o male comes for follow up of parkinsons, REM behavior disorder. He reports worsening of his swallowing and has more GERD symptoms.He still has a lot of drooling and also dizziness. He is on escitalopram 20mg qd. His dizziness is better with midodrine . droxidopa was not approved. His bowel movements are better with change in diet- increased fiber intake 1-2 kiwis a day. botox did not help with drooling. He is able to go back to sleep. His leg cramps are better.. No falls. speech is softer. He is independent in all his ADLs. He still has daily REM behavior disorder, milder - no falls. Mood is stable Memory is good No hallucinations He is exercising regularly. [facility] Medical History Parkinson's disease with neurogenic orthostatic hypotension Pacemaker Anxiety Vertigo Parkinson's disease REM behavioral disorder Tremors of nervous system Arthritis Surgical History Hx of bilateral hip replacements Family History Father Cancer Mother Depression Dementia Social History Household Members: Spouse Alcohol intake: former Patient Tobacco Use Status: Never used Tobacco Physical Exam Vital Signs: Last Vital Signs Pulse 60 07/07/24 13:20 BP 118/88 07/07/24 13:20 Pulse Ox 100 07/07/24 13:20 Oxygen Delivery Method Room Air 07/07/24 13:20 BMI result Body Mass Index 21.4 Const General: cooperative Orientation/consciousness: patient oriented x3 Neuro Other: UPDRS - 3 moderately decreased facial expression, antecollis, restricted range of motion neck Mild dyskinesia Speech 2.Monotone,slurred but understandable,moderately impaired Facial expression 0-normal 1-Minimal hypomimia, poker face 2-Slight but definite abnormal diminution of facial expression 3-Moderate hypomimia,lips parted some of the time 4-Masked or fixed facies withs evere loss of facialexpression, lips parted more than 1/4 inch Rest Tremors( head, Upper, lower ) 0- absent 1-Slight and infrequent 2-Mild in amplitude and persistent Left UE 3-Moderate in amplitude and present most of the time 4-Marked amplitude and present most of the time Action and Postural tremors 0-none 1-Slight with action 2-Moderate with action 3-Moderate with posture and action 4-Marked , interferes with feeding Rigidity 0-Absent 1-Slight or detectable only when activated by mirror movements 2-Mild to Moderate L>R 3-Marked, but full ROM achieved L>R 4-Severe, range of motion achieved with difficulty Finger Taps 0-normal 1-Mild slowing an gaby reductionin amplitude 2-Moderately impaired. Early fatiguing and occasional arrests in movement L>R 3-Severely impaired. Frequent hesitation in initiating movements or arrests in ongoing movement. 4-can barely perform the task Hand movements 0-normal 1-mild slowing and or reduction in amplitude 2-Moderately impaired.Definite and early fatiguing, may have occasional arrests in movement. 3-Severely impaired.Frequent hesitation in initiating or arrests in movement.L>R 4-can barely perform the task Rapid Alternating Movements of Hands 0-normal 1-Mild slowing and or reduction in amplitude 2-Moderately impaired.Definite and early fatiguing. 2-Moderately impaired. Definite and early fatiguing. May have occasional arrests in movement. 3-severely impaired.Frequent hesitation in initiating movements or arrests in ongoing movement. 4-can barely perform the task Leg agility 0-normal 1-mild slowing and reduction in amplitude 2-moderately impaired.Definite and early fatiguing , may have occasional arrest in movement. 3-severely impaired.Frequent hesitation in initiating movements or arrests in ongoing movement. 4-can barely perform the task Arising from a chair 0-Normal 1-Slow or may need more than 1 attempt 2-Pushes self up from arms of seat 3-Tends to fall back and may have to try more than one time,but can get up without difficulty 4-Unable to stand without help Posture 0-normal 1-slightly stooped, could be normal for an older person 2-moderately stooped posture, definitely abnormal, can be leaning to one side 3-severely stooped posture with kyphosis, can be moderately leaning to one side 4-Marked flexion with extreme abnormal posture Gait 0-normal 1-walks slowly,may shuffle with short steps, but no festination or propulsion 2-walks with difficulty,but requires little or no assistance, may have short steps, festination or propulsion 3-severe, needs assistance 4-cannot walk even with assistance Postural stability 0-normal 1-retropulsion but recovers unaided 2-absence of postural response,will fail if not caught by the examiner 3-very unstable,tends to lose balance spontaneously 4-unable to stand without assistance Body bradykinesia and hypokinesia 0-none 1-minimal slowness,giving movement a deliberate character,could be normal for some persons.Possible reduced amplitude 2-Mild degree of slowness and poverty of movement or some reduced amplitude 3-moderate slowness,poverty or small amplitude of movement 4-marked slowness, poverty or small amplitude of movement. General: patient oriented x3 Assessment & Plan Assessment & Plan (1) Parkinson's disease with neurogenic orthostatic hypotension: Code(s): G90.3 - Multi-system degeneration of the autonomic nervous system Category: Medical (2) REM behavioral disorder: Code(s): G47.52 - REM sleep behavior disorder Category: Medical Plan: he stopped melatonin - says his episodes are not as frequent (3) Drooling: Code(s): K11.7 - Disturbances of salivary secretion Category: Medical (4) Anxiety: Code(s): F41.9 - Anxiety disorder, unspecified Category: Medical Plan sinemet 25/100 2 tabs 5 times a day- 7am,10am,1pm,4pm,7pm Increase caffiene and salt intake Increase physical activity clonazepam 0.5 mg 1tab tid Midodrine 5 mg 7am 11am 3pm Take glycopyrrolate 1mg bid escitalopram 20mg qd mirtazapine 15 mg qhs will consider rytary Medications: New mirtazapine 15 mg PO BEDTIME 30 tabs 6RF Changed From glycopyrrolate 1 mg PO BID-TID PRN 90 tabs 0RF secretions To glycopyrrolate for drooling 1 mg PO BID 60 tabs 6RF secretions Discontinued lorazepam Discontinued Reason: Patient no longer taking 0.5 mg PO BID PRN 60 tabs 1RF anxiety MDD 2tabs clonazepam Discontinued Reason: Patient no longer taking 1 mg (2 x 0.5 mg) PO BEDTIME 60 tabs 2RF Coding Level of Care Code Est Pt Level 4 (25340) Complex EM visit Add On G2211 Diagnoses Parkinson's disease with neurogenic orthostatic hypotension G90.3 REM behavioral disorder G47.52 Drooling K11.7 Anxiety F41.9
[2024-07-07 13:20] VITALS: BP 118/88; PULSE 60; O2SAT 100; BMI 21.4
--- OUTSIDE RECORDS SUMMARY | 2024-07-07 15:03 | XMS_ITS | Clinical Summary ---
Author Organization [address] [place] [address] Address [address] [place] [address] Phone Care Team Providers Care Cell Lead Name Role Phone Supa Marsh Primary Care Provider [phone] Allergies No known active allergies Medications magnesium, amino acid chelate, 133 mg tablet Take 1 tablet (133 mg total) by mouth 2 (two) times a day. 180 tablet 1 Active Additional Information Patient not taking.Reported on 06/16/2024 acetaminophen (TYLENOL) 500 mg tablet Take 1 tablet (500 mg total) by mouth as needed. Active carbidopa-levod opa (SINEMET) 25-100 mg per tablet Take 2 tablets by mouth 5 (five) times a day. Active clonazePAM (KlonoPIN) 0.5 mg tablet Take 0.5 tablets (0.25 mg total) by mouth 3 (three) times a day if needed. Active escitalopram (LEXAPRO) 20 mg tablet Take 1 tablet (20 mg total) by mouth 1 (one) time each day. Active glycopyrrolate (ROBINUL) 1 mg tablet Take 1 tablet (1 mg total) by mouth 2 (two) times a day. Active LORazepam (ATIVAN) 0.5 mg tablet Take 1 tablet (0.5 mg total) by mouth as needed. Max Daily Amount: 0.5 mg Active midodrine (PROAMATINE) 2.5 mg tablet Take 1 tablet (2.5 mg total) by mouth 3 (three) times a day. Active metoprolol tartrate (LOPRESSOR) 25 mg tablet TAKE 1/2 TABLET TWICE A DAY BY MOUTH 90 tablet 1 5 Active midodrine (PROAMATINE) 5 mg tablet Take 1 tablet (5 mg total) by mouth 3 (three) times a day before meals. Active mirtazapine (REMERON) 15 mg tablet Take 1 tablet (15 mg total) by mouth at bedtime. Active Active Problems Problem Noted Date Diagnosed Date AV block, Mobitz 1 03/09/2023 SSS (sick sinus syndrome) 03/09/2023 Overview (04/14/2024): Last Assessment & Plan: Status post pacemaker placement. We will continue with routine visits to our device clinic and remote monitoring. Benign essential HTN 02/19/2023 Overview (04/14/2024): Last Assessment & Plan: Patient's blood pressure today 104/66. He is now on midodrine 2.5 mg 3 times daily. He reports that the lightheadedness with position changes has improved. Patient encouraged to maintain proper hydration and wear compression stockings. In the past when he was on midodrine at higher doses this caused his blood pressure to be too high and he felt unwell. At this point he will continue with conservative strategies in addition to low-dose midodrine. He continues to follow closely with his neurologist. Dizziness 02/19/2023 Overview (04/14/2024): Last Assessment & Plan: Patient continues to report lightheadedness with arising from a seated position. On examination he does appear to be orthostatic. Recently carbidopa levodopa was decreased at by his neurologist yesterday. I will also decrease his metoprolol to 12.5 mg twice daily. If his symptoms persist he will call me. May need to consider stopping his metoprolol if symptoms continue. Palpitation 02/19/2023 SVT (supraventricular tachycardia) 02/19/2023 Overview (04/14/2024): Last Assessment & Plan: Patient has history of SVT with conversion pauses. He was started on low-dose metoprolol for SVT and underwent placement of a pacemaker to prevent significant bradycardia. In the past he had episodes of presyncope. He denies any of those symptoms recently. He does have issues with orthostatic hypotension and continues now on midodrine with good effect. Will continue to monitor his pacemaker carefully and if he has any recurrent SVT we would consider ablation given his limitations with medical therapies. Continue with low-dose metoprolol 12.5 mg twice daily as prescribed. Tachycardia 02/19/2023 Encounters Date Type Department Care Team Description 06/16/2024 11:10 AM EST Consult [facility] Cardiology [facility] [address] [facility] [address] [place] [id number] Anirudh Doshi MD SVT (supraventricular tachycardia) ([facility]) (Primary Dx) 05/20/2024 8:30 PM EST Ancillary Procedure [facility] [address] [facility] [address] [place] [address] from Last 3 Months Social History Tobacco Use Types Packs/Day Years Used Date Smoking Tobacco: Former Cigarettes Tobacco Cessation:Counseling Given: Not Answered Comments:Smoked in his 20's Alcohol Use Standard Drinks/Week Comments Not Asked 0 (1 standard drink = 0.6 oz pur e alcohol) No Sex and Gender Information Value Date Recorded Sex Assigned at Not on file Legal Sex Male 9:52 PM EST Gender Identity Not on file Sexual Orientation Not on file Obstetrics History Last Filed Vital Signs Vital Sign Reading Time Taken Comments Blood Pressure 102/60 06/16/2024 11:03 AM EST Pulse - - Temperature - - Respiratory Rate - - Oxygen Saturation 97% 06/16/2024 11:03 AM EST Inhaled Oxygen Concentration - - Weight 72 kg (158 lb 12.8 oz) 06/16/2024 11:03 A M EST Height 180.3 cm (5' 11 ) 06/16/2024 11:03 AM EST Body Mass Index 22.15 06/16/2024 11:03 AM EST Plan of Treatment Upcoming Encounters Date Type Department Care Team (Late st Contact Info) Description 02/11/2025 4:30 PM EDT Ancillary Procedure [facility] Cardiology [facility] [address] [facility] [address] [place] [phone] Health Maintenance Due Date Last Done Comments DTaP,Tdap,and Td Vaccines (1 - Tdap) 1969 Abdominal Aortic Aneurysm (AAA) Screen 04/15/2022 Cholesterol Screening (Lipid Panel) 04/15/2022 Colorectal Cancer Screening: Colonoscopy 04/15/2022 Depression Screening 04/15/2022 Falls Risk Assessment 04/15/2022 Hepatitis C Screening 04/15/2022 Medicare Annual Wellness Visit 04/15/2022 Social Influencers of Health Screening 04/15/2022 COVID-19 Vaccine ( season) 2024 02/10/2022, 03/09/2021, 08/04/2020, Additional history exists Zoster Vaccines (2 of 2) 05/05/2024 03/10/2024 RSV Immunization Patients 60+ Years Old (1 - 1-dose 75+ series) 2024 Hypertension/CHF/CAD Annual BMP Blood Test 04/04/2025 04/04/2024 Pneumococcal Vaccine: 50+ Years Completed 03/21/2023, 02/24/2021, 02/23/2014 Influenza Vaccine Completed 03/07/2024, , 02/10/2022, Additional history exists HIB Vaccines Aged Out No longer eligi ble based on patient's age to complete this topic HPV Vaccines Aged Out No longer eligi ble based on patient's age to complete this topic Hepatitis A Vaccines Aged Out No long er eligible based on patient's age to complete this topic Hepatitis B Vaccines Aged Out No long er eligible based on patient's age to complete this topic IPV Vaccines Aged Out No longer eligi ble based on patient's age to complete this topic MMR Vaccines Aged Out No longer eligi ble based on patient's age to complete this topic Meningococcal ACWY Vaccine Aged Out N o longer eligible based on patient's age to complete this topic Meningococcal B Vacine Aged Out No lo nger eligible based on patient's age to complete this topic RSV Immunization Patients Under 20 months Aged Out No longer eligible based on patient's age to complete this topic Varicella Vaccines Aged Out No longer eligible based on patient's age to complete this topic Medical Devices Implanted Type Area Brazer Resistance Device Identifier Shelf Expiration Date Model / Serial / Lot Abbt-ju 2272 Assurity Mri(Tm) [id number] Implanted: (Quantity not on file) Cardiac Pacemaker [employer]- [employer] 2272 ASSURITY MRI(TM) / [id number] / Procedures Procedure Name Priority Date/Time Associated Diagnosis Comments ECG 12-LEAD Routine 06/16/2024 11:48 AM EST SVT (supraventricular tachycardia) (CMS/HCC) CARDIAC DEVICE CHECK- REMOTE- MURJ Routine 05/20/2024 8:28 PM EST BASIC METABOLIC PANEL Routine 04/04/2024 11:33 AM EST from Last 3 Months or Most Recently Relevant to Health Maintenance Results * ECG 12 lead (06/16/2024 11:48 AM EST) Ventricular Rate ECG 60 BPM GEMUSE Atrial Rate 60 BPM GEMUSE QRS Duration 84 ms GEMUSE Q-T Interval 414 ms GEMUSE QTc 414 ms GEMUSE R Roberts 12 degrees GEMUSE T Roberts -15 degrees GEMUSE ECG Interpretation Atrial-paced rhythm with prolonged AV conduction Septal infarct , age undetermined Marked T wave abnormality, consider inferior ischemia Abnormal ECG When compared with ECG of 08-JAN-2020 08:02, Electronic atrial pacemaker has replaced Sinus rhythm QRS axis Shifted right Septal infarct is now Present ST now depressed in Inferior leads T wave inversion now evident in Inferior leads Confirmed by Donny DOSHI, ANIRUDH ([id number]) on 06/19/2024 3:06:21 PM GEMUSE 06/16/2024 11:2 1 AM EST 06/19/2024 3:06 PM EST us Anirudh Doshi MD ECG ORDERABLES Edited Result - Final GEMUSE * Cardiac device check - Remote- MURJ (05/20/2024 8:28 PM EST) Date Time Interrogation Session [id number] CV DEVICE CHECK Type Interrogation Session Remote Scheduled CV DEVICE CHECK Implantable Pulse Generator Brazer Resistance [employer] CV DEVICE CHECK Implantable Pulse Generator Type IPG CV DEVICE CHECK Implantable Pulse Generator Model 2272 Assurity MRI(TM) CV DEVICE CHECK Implantable Pulse Generator Serial Number [id number] CV DEVICE CHECK Implantable Pulse Generator Implant Date 20230108 CV DEVICE CHECK Battery Remaining Percentage 90.00 CV DEVICE CHECK Battery Remaining Longevity 112.0 CV DEVICE CHECK Battery Voltage 3.010 CV D EVICE CHECK Battery COPPER FLOTATION OPERATOR Trigger 2.600 CV DEVICE CHECK Battery Status Middle of Service CV DEVICE CHECK Dimitri Statistic RA Percent Paced 61.00 CV DEVICE CHECK Dimitri Statistic RV Percent Paced 38.00 CV DEVICE CHECK Atrial Tachy Statistic AT/AF Quinn Percent 0.00 CV DEVICE CHECK Lead Channel Sensing Intrinsic Amplitude 0.700 CV DEVICE CHECK Lead Channel Setting Sensing Sensitivity 0.30 CV DEVICE CHECK Lead Channel Impedance Value 480 CV DEVICE CHECK Lead Channel Pacing Threshold Amplitude 0.625 CV DEVICE CHECK Lead Channel Pacing Threshold Pulse Width 0.4 CV DEVICE CHECK Lead Channel RA Pacing Threshold Date 2024-04-30 CV DEVICE CHECK Lead Channel Setting Pacing Amplitude 1.625 CV DEVICE CHECK Lead Channel Setting Pacing Pulse Width 0.4 CV DEVICE CHECK Lead Channel Sensing Intrinsic Amplitude 12.000 CV DEVICE CHECK Lead Channel Setting Sensing Sensitivity 0.50 CV DEVICE CHECK Lead Channel Impedance Value 310 CV DEVICE CHECK Lead Channel Pacing Threshold Amplitude 0.625 CV DEVICE CHECK Lead Channel Pacing Threshold Pulse Width 0.4 CV DEVICE CHECK Lead Channel RV Pacing Threshold Date 2024-04-30 CV DEVICE CHECK Lead Channel Setting Pacing Amplitude 0.875 CV DEVICE CHECK Lead Channel Setting Pacing Pulse Width 0.4 CV DEVICE CHECK Dimitri Setting Mode (NBG Code) DDD CV DEVICE CHECK Dimitri Setting Lower Rate Limit 60 CV DEVICE CHECK Dimitri Setting AT Mode Switch Rate 180 CV DEVICE CHECK Dimitri Setting Maximum Tracking Rate 130 CV DEVICE CHECK Dimitri Setting Maximum Sensor Rate 130 CV DEVICE CHECK Dimitri Setting PAV Delay 200 CV DEVICE CHECK Dimitri Setting MOON Delay 150 CV DEVICE CHECK Date of Service 2024-05-11 CV DEVICE CHECK Anatomical Region Laterality Modality Device Interroga tion 04/30/2024 4:00 AM EST Impressions 05/20/2024 11:54 AM EST Normal Remote: No Events * Normal Device Function * Alerts or events: None * Battery: Battery is at 90%, 9.33 yrs * Sensing, impedance and thresholds reviewed * Programmed parameters reviewed * Presenting rhythm reviewed * Heart Rate Histograms reviewed * No significant changes noted Narrative Procedure Note Cary Lozano PA - 05/20/2024 IMPRESSION: Normal Remote: No Events * Normal Device Function * Alerts or events: None * Battery: Battery is at 90%, 9.33 yrs * Sensing, impedance and thresholds reviewed * Programmed parameters reviewed * Presenting rhythm reviewed * Heart Rate Histograms reviewed * No significant changes noted Cary WOO CV IMPLANTABLE CARDIAC DEVICE UT OCEDURES Final Result * Basic metabolic panel (04/04/2024 11:33 AM EST) Glucose 92 70 - 99 mg/dL [facility] Blood Urea Nitrogen (BUN) 16 8 - 27 mg/dL [facility] Creatinine 0.92 0.76 - 1.27 mg/dL [facility] 1 eGFR 87 >59 mL/min/1.7 3 [facility] 1 BUN/Creatinine Ratio 17 10 - 24 [facility] 1 Sodium 135 134 - 144 mmol/L [facility] 1 Potassium 4.6 3.5 - 5.2 mmol/L [facility] 1 Chloride 98 96 - 106 mmol/L [facility] 1 Carbon Dioxide 23 20 - 29 mmol/L [facility] 1 Calcium 8.8 8.6 - 10.2 mg/dL [facility] 1 04/04/2024 11:3 3 AM EST 04/04/2024 Narrative [facility] 1 - 04/05/2024 4:07 AM EST Performed at: ??01 - [facility] [address] ??[id number] Community Service Technician: Zoë Feliz MD, Phone: ??[phone] Veronica Trevino TECHNICAL SALES MANAGER LAB BLOOD ORDERABLES Final R esult [facility] 1 from Last 3 Months or Most Recently Relevant to Health Maintenance Insurance MEDICARE [facility] Care Teams Cell Lead Relationship Specialty Start Date End Date Supa Marsh PA [address] [facility] [place] [address] PCP - General Internal Medicine 06/13/24
--- OUTSIDE RECORDS SUMMARY | 2024-07-07 15:03 | XMS_ITS | Encounter Summary ---
Author Organization [facility] Address [address] [place] [address] Care Team Providers Care Mortgage Protection Sales Name Role Phone Supa Marsh Primary Care Provider [phone] Reason for Visit * Reason Comments Follow-up EP evaluation Encounter Details Date Type Department Care Team (Late st Contact Info) Description 06/16/2024 11:10 AM EST Consult [facility] [address] [place] [phone] Anirudh Doshi MD [address] [place] [address] SVT (supraventricular tachycardia) (CMS/HCC) (Primary Dx) Social History Tobacco Use Types Packs/Day Years [...] on file Sexual Orientation Not on file documented as of this encounter Last Filed Vital Signs Vital Sign Reading [...] Mass Index 22.15 06/16/2024 11:03 AM EST documented in this encounter Progress Notes * Anirudh Doshi MD - 06/16/2024 11:10 AM EST Dear CHILO Zayas: Thank you for requesting cardiology consultation on your patient, Anirudh Begum. As you know, is [id number] gentleman with SVT with tachycardia- bradycardia syndrome for which she had pacemaker placed December 2022. He has a dual-chamber Garner device that has been pacing in the ventricle on fairly consistently. He is mostly atrial sensed. 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 This occurred at 6 AM and he was not aware of it. Interrogation of the device today does not show any recent episodes. Hiscapture threshold sensing and lead impedances remained normal and he has ample battery longevity. He denies any syncope. He is troubled by low blood pressure and had to cut his metoprolol dose to 25 mg and add midodrine to avoid orthostatic hypotension. No problem-specific Assessment & Plan notes found for this encounter. PAST MEDICAL HISTORY: Patient Active Problem List Diagnosis Date Noted AV block, Mobitz 1 03/09/2023 SSS (sick sinus syndrome) ([facility]) 03/09/2023 Benign essential HTN 02/19/2023 Dizziness 02/19/2023 Palpitation 02/19/2023 SVT (supraventricular tachycardia) ([facility]) 02/19/2023 Tachycardia 02/19/2023 SOCIAL HISTORY: Social History Tobacco Use Smoking status: Former Types: Cigarettes Smokeless tobacco: Not on file Tobacco comments: Smoked in his 20's Substance Use Topics Alcohol use: Not on file Comment: No ACTIVE MEDICATIONS: Outpatient Medications Marked as Taking for the 06/16/24 encounter (Consult) with Anirudh Doshi MD Medication Sig Dispense Refill acetaminophen (TYLENOL) 500 mg tablet Take 1 tablet (500 mg total) by mouth as needed. carbidopa-levodopa (SINEMET) 25-100 mg per tablet Take 2 tablets by mouth 5 (five) times a day. clonazePAM (KlonoPIN) 0.5 mg tablet Take 0.5 tablets (0.25 mg total) by mouth 3 (three) times a dayif needed. metoprolol tartrate (LOPRESSOR) 25 mg tablet TAKE 1/2 TABLET TWICE A DAY BY MOUTH 90 tablet 1 midodrine (PROAMATINE) 5 mg tablet Take 1 tablet (5 mg total) by mouth 3 (three) times a day beforemeals. mirtazapine (REMERON) 15 mg tablet Take 1 tablet (15 mg total) by mouth at bedtime. ALLERGIES: No Known Allergies PHYSICAL EXAM: Vitals: 06/16/24 1103 BP: 102/60 BP Location: Left arm Patient Position: Sitting BP Cuff Size: Adult SpO2: 97% Weight: 72 kg (158 lb 12.8 oz) Height: 1.803 m (71 ) APPEARANCE: Alert and in no acute distress EYES: PERRL, conjunctiva and sclera normal NECK: Neck supple, 2+ carotid pulses, No bruits. HEART: RRR with normal S1 and S2, no murmurs, no gallops, no JVD appreciated LUNG: clear to auscultation ABDOMEN: Bowel sounds normoactive, no bruits, soft, non-tender, without organomegaly or palpable masses, no abdominal bruits EXTREMITIES: Extremities warm and well perfused without clubbing, cyanosis, or edema NEURO: Awake, alert and oriented x 3, Cranial nerves II-XII grossly intact SKIN: Skin color, texture, turgor normal. No rashes or lesions. PSYCH: Mood and affect are appopriate. 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 In fact, he is on midodrine and would like to come off the medicine if possible. I went through the options that include continued monitoring on the lower dose of metoprolol and hoping that the SVT burden is not high enoughto be symptomatic. The other option would be catheter ablation and I went through that procedure with him we discussed the 98% success rate and ablating typical AVNRT and the potential time off of met oprolol completely. After going through the pros and cons of each procedure and option we decided to monitor using his [place] machine for another 6 to 12 months and if he has a reasonable burden of SVT then we will proceed to ablation and if it is very minimal we will continue with the small dose of metoprolol. Orders Placed This Encounter Procedures ECG 12 lead Thank you for requesting cardiology consultation on this delightful patient. Sincerely, Cc: documented in this encounter Plan of Treatment Upcoming Encounters Date Type Department Care Team (Late st Contact Info) Description 02/11/2025 4:30 PM EDT Ancillary Procedure [facility] - [address] [place] [address] documented as of this encounter Procedures Procedure Name Priority Date/Time Associated Diagnosis Comments ECG 12-LEAD Routine 06/16/2024 11:48 AM EST SVT (supraventricular tachycardia) (CMS/HCC) documented in this encounter Results * ECG 12 lead (06/16/2024 11:48 AM EST) Ventricular Rate ECG 60 BPM GEMUSE Atrial Rate 60 BPM GEMUSE QRS Duration 84 ms GEMUSE Q-T Interval 414 ms GEMUSE QTc 414 ms GEMUSE R Pep 12 degrees GEMUSE T Pep -15 degrees GEMUSE ECG Interpretation Atrial-paced rhythm [...] ECG ORDERABLES Edited Result - Final GEMUSE documented in this encounter Visit Diagnoses Diagnosis SVT (supraventricular tachycardia) (CMS/[facility])- Primary Other specified cardiac dysrhythmias Encounter for adjustment or management of cardiac device documented in this encounter Historical Medications * This list may reflect changes made after this encounter. mirtazapine (REMERON) 15 mg tablet Take 1 tablet (15 mg total) by mouth at bedtime. midodrine (PROAMATINE) 5 mg tablet Take 1 tablet (5 mg total) by mouth 3 (three) times a day before meals. added in this encounter Care Teams Mortgage Protection Sales Relationship Specialty Start Date End Date Supa Marsh PA [address] [place] [address] PCP - General Internal Medicine 06/13/24 documented as of this encounter
== END 2024-07-07 14:21 | disposition home or self-care (01) ==
PROVIDERS: PCP Physician Assistant; Visit Provider Psychiatry & Neurology Neurology
DX: G90.3 Multi-system degeneration of the autonomic nervous system (principal); G47.52 REM sleep behavior disorder; K11.7 Disturbances of salivary secretion; F41.9 Anxiety disorder, unspecified
CPT/HCPCS: 99214; G2211

== ENCOUNTER → 2024-07-07 13:10 | Outpatient (BNVA) | payer MEDICARE, SELFPAY | PROVIDERS: PCP Physician Assistant; Visit Provider Psychiatry & Neurology Neurology | DX: G90.3 Multi-system degeneration of the autonomic nervous system (principal); G47.52 REM sleep behavior disorder; K11.7 Disturbances of salivary secretion; F41.9 Anxiety disorder, unspecified | CPT/HCPCS: 99212 ==

== ENCOUNTER 2024-11-17 13:44 | Outpatient (AMB) | payer MEDICARE, SELFPAY ==
[2024-11-17 13:46] VITALS: BP 144/82; BMI 20.9
--- NOTE | 2024-11-17 13:46 | MHC.OFFVIS ---
Vital Signs 11/17/24 13:46 Height 6 ft Weight 154 lb BMI 20.9 BP 144/82 H Blood Pressure Location Rt brachial Position Sitting Intake Visit Reasons: follow up parkinsons Intake Note: Patient presents for Parkinson's disease with neurogenic orthostatic hypotension. med trial given mirtazapine Allergies No Known Allergies Allergy (Verified 11/17/24 13:49) HPI Comments Details: 74y/o male comes for follow up of parkinsons, REM behavior disorder. He reports worsening of his swallowing and has more GERD symptoms.His drooling is better with glycopyrollate He is on escitalopram 20mg qd. His dizziness is better with midodrine . droxidopa was not approved. His bowel movements are better with change in diet- increased fiber intake 1-2 kiwis a day. botox did not help with drooling. He is able to go back to sleep. His leg cramps are better.. No falls. speech is softer. He is independent in all his ADLs. He still has daily REM behavior disorder, milder - no falls. Mood is stable Memory is good No hallucinations He is exercising regularly. [facility] Medical History (Updated 11/17/24 @ 13:52 by TAMICA Munoz) Hx of cardiac pacemaker Parkinson's disease with neurogenic orthostatic hypotension Anxiety Vertigo Parkinson's disease REM behavioral disorder Tremors of nervous system Arthritis Surgical History Hx of bilateral hip replacements Family History Father Cancer Mother Depression Dementia Social History Household Members: Spouse Alcohol intake: former Patient Tobacco Use Status: Never used Tobacco Physical Exam Vital Signs: Last Vital Signs BP 144/82 H 11/17/24 13:46 BMI result Body Mass Index 20.9 Const General: cooperative Orientation/consciousness: patient oriented x3 Neuro Other: UPDRS - 3 moderately decreased facial expression, antecollis, restricted range of motion neck Mild dyskinesia Speech 2.Monotone,slurred but understandable,moderately impaired Facial expression 0-normal 1-Minimal hypomimia, poker face 2-Slight but definite abnormal diminution of facial expression 3-Moderate hypomimia,lips parted some of the time 4-Masked or fixed facies withs evere loss of facialexpression, lips parted more than 1/4 inch Rest Tremors( head, Upper, lower ) 0- absent 1-Slight and infrequent 2-Mild in amplitude and persistent Left UE 3-Moderate in amplitude and present most of the time 4-Marked amplitude and present most of the time Action and Postural tremors 0-none 1-Slight with action 2-Moderate with action 3-Moderate with posture and action 4-Marked , interferes with feeding Rigidity 0-Absent 1-Slight or detectable only when activated by mirror movements 2-Mild to Moderate L>R 3-Marked, but full ROM achieved L>R 4-Severe, range of motion achieved with difficulty Finger Taps 0-normal 1-Mild slowing an gaby reductionin amplitude 2-Moderately impaired. Early fatiguing and occasional arrests in movement L>R 3-Severely impaired. Frequent hesitation in initiating movements or arrests in ongoing movement. 4-can barely perform the task Hand movements 0-normal 1-mild slowing and or reduction in amplitude 2-Moderately impaired.Definite and early fatiguing, may have occasional arrests in movement. 3-Severely impaired.Frequent hesitation in initiating or arrests in movement.L>R 4-can barely perform the task Rapid Alternating Movements of Hands 0-normal 1-Mild slowing and or reduction in amplitude 2-Moderately impaired.Definite and early fatiguing. 2-Moderately impaired. Definite and early fatiguing. May have occasional arrests in movement. 3-severely impaired.Frequent hesitation in initiating movements or arrests in ongoing movement. 4-can barely perform the task Leg agility 0-normal 1-mild slowing and reduction in amplitude 2-moderately impaired.Definite and early fatiguing , may have occasional arrest in movement. 3-severely impaired.Frequent hesitation in initiating movements or arrests in ongoing movement. 4-can barely perform the task Arising from a chair 0-Normal 1-Slow or may need more than 1 attempt 2-Pushes self up from arms of seat 3-Tends to fall back and may have to try more than one time,but can get up without difficulty 4-Unable to stand without help Posture 0-normal 1-slightly stooped, could be normal for an older person 2-moderately stooped posture, definitely abnormal, can be leaning to one side 3-severely stooped posture with kyphosis, can be moderately leaning to one side 4-Marked flexion with extreme abnormal posture Gait 0-normal 1-walks slowly,may shuffle with short steps, but no festination or propulsion 2-walks with difficulty,but requires little or no assistance, may have short steps, festination or propulsion 3-severe, needs assistance 4-cannot walk even with assistance Postural stability 0-normal 1-retropulsion but recovers unaided 2-absence of postural response,will fail if not caught by the examiner 3-very unstable,tends to lose balance spontaneously 4-unable to stand without assistance Body bradykinesia and hypokinesia 0-none 1-minimal slowness,giving movement a deliberate character,could be normal for some persons.Possible reduced amplitude 2-Mild degree of slowness and poverty of movement or some reduced amplitude 3-moderate slowness,poverty or small amplitude of movement 4-marked slowness, poverty or small amplitude of movement. General: patient oriented x3 Assessment & Plan Assessment & Plan (1) Parkinson's disease with neurogenic orthostatic hypotension: Code(s): G90.3 - Multi-system degeneration of the autonomic nervous system Category: Medical (2) REM behavioral disorder: Code(s): G47.52 - REM sleep behavior disorder Category: Medical Plan: he stopped melatonin - says his episodes are not as frequent (3) Drooling: Code(s): K11.7 - Disturbances of salivary secretion Category: Medical (4) Anxiety: Code(s): F41.9 - Anxiety disorder, unspecified Category: Medical Plan sinemet 25/100 2 tabs 5 times a day- 7am,10am,1pm,4pm,7pm Increase caffiene and salt intake Increase physical activity clonazepam 0.5 mg 1tab tid as needed Midodrine 5 mg 7am 11am 3pm glycopyrrolate 1mg bid escitalopram 20mg qd mirtazapine 15 mg qhs will consider rytary or Vyalev speech and swallowing exercises Orders: Referrals Speech and Hearing Referral R13.10 - Dysphagia, unspecified Coding Level of Care Code Est Pt Level 4 (37567) Complex EM visit Add On G2211 Diagnoses Parkinson's disease with neurogenic orthostatic hypotension G90.3 REM behavioral disorder G47.52 Drooling K11.7 Anxiety F41.9
--- OUTSIDE RECORDS SUMMARY | 2024-11-17 14:12 | XMS_ITS | Encounter Summary ---
Author Organization [facility] Address [address] [place] [address] Care Team Providers Care Carpenter Helper Maintenance Name Role Phone Supa Marsh Primary Care Provider [phone] Encounter Details Date Type Department Care Team (Late st Contact Info) Description 11/05/2024 Telephone [facility] - [address] [place] [id number] Cary Lozano PA [address] [place] [address] Social History Tobacco Use Types Packs/Day Years Used Date Smoking Tobacco: Former Cigarettes Comments:Smoked in his 20's Alcohol Use Standard Drinks/Week Comments Not Asked 0 (1 standard drink = 0.6 oz pur e alcohol) No Sex and Gender Information Value Date Recorded Sex Assigned at Not on file Legal Sex Male 9:52 PM EST Gender Identity Not on file Sexual Orientation Not on file documented as of this encounter Progress Notes * CHILO Ruiz - 11/06/2024 10:12 AM EDT Device can you lower monitoring zone to 140 bpm to possible capture onset and termination non urgent * Dinora Meza MA - 11/05/2024 3:37 PM EDT Lvm for pt to cb On October 31 at 3:50 PM, your heart had a short episode of beating faster than normal--about 156 beats per minute--for almost 23 minutes. This type of fast heartbeat is called a 'narrow complex tachycardia,' which usually means the electrical signals in your heart were moving quickly but in an organized way. It started and stopped on its own, and we didn???t catch exactly when it began or ended.These episodes can sometimes cause symptoms like palpitations or feeling lightheaded, but they???reoften not dangerous. Still, it???s something we???ll keep an eye on and may want to learn more about if it happens again. * CHILO Ruiz - 11/05/2024 3:27 PM EDT See MURJ encounter titled Ancillary Procedure, report may be found under media, dated:, Narrow complex Tachycardia on October 31 at 3:50 pm rate of 156 bpm duration 22 minutes and 54 seconds-no onset or termination recorded Please call patient assess symptoms or activity to increased heart rate and forward to primary cardiology team documented in this encounter Plan of Treatment Upcoming Encounters Date Type Department Care Team (Late st Contact Info) Description 12/19/2024 11:10 AM EDT Office Visit [facility] - [address] [place] [address] Yessy Kong, TOLU [address] [place] [address] [place] [id number] 01/08/2025 10:30 AM EDT Ancillary Procedure [facility] - [address] [place] [address] 02/11/2025 3:00 PM EDT Ancillary Procedure [facility] - [address] [place] [address] documented as of this encounter Visit Diagnoses Not on filedocumented in this encounter Care Teams Carpenter Helper Maintenance Relationship Specialty Start Date End Date Supa Marsh PA [address] [place] [address] PCP - General Internal Medicine 06/13/24 documented as of this encounter
== END 2024-11-17 14:26 | disposition home or self-care (01) ==
LOC: HO.HSMS 13:44
PROVIDERS: PCP Physician Assistant; Visit Provider Psychiatry & Neurology Neurology
DX: G90.3 Multi-system degeneration of the autonomic nervous system (principal); G47.52 REM sleep behavior disorder; K11.7 Disturbances of salivary secretion; F41.9 Anxiety disorder, unspecified
CPT/HCPCS: 99214; G2211

== ENCOUNTER → 2024-11-17 13:44 | Outpatient (BNVA) | payer MEDICARE, SELFPAY | PROVIDERS: PCP Physician Assistant; Visit Provider Psychiatry & Neurology Neurology | DX: G47.52 REM sleep behavior disorder (principal); G90.3 Multi-system degeneration of the autonomic nervous system; K11.7 Disturbances of salivary secretion; F41.9 Anxiety disorder, unspecified; Z79.899 Other long term (current) drug therapy | CPT/HCPCS: 99212 ==

== ENCOUNTER 2025-03-30 10:53 | Outpatient (AMB) | payer MEDICARE, SELFPAY ==
[2025-03-30 10:49] VITALS: BP 122/76; PULSE 70; O2SAT 96; BMI 21.4
--- NOTE | 2025-03-30 10:49 | A.OFFVIS_ITS ---
Vital Signs 03/30/25 10:49 Height 6 ft Weight 158 lb 2 oz BMI 21.4 BP 122/76 Blood Pressure Location Rt brachial Position Sitting Pulse 70 Pulse Source Pulse Oximeter Pulse Oximetry (%) 96 Oxygen Delivery Method Room Air Intake Visit Reasons: 4 mo follow up Intake Note: Follow up Parkinson's disease with neurogenic orthostatic hypotension, REM behavioral and sleep disorder, Drooling and anxiety [employer] Required: No Accompanied by: Spouse Allergies No Known Allergies Allergy (Verified 03/30/25 10:49) Medication List - Last Reconciled 03/30/25 by Mary Amin MD carbidopa-levodopa 25-100 mg 2 tabs PO .5 times a day clonazepam 0.5 mg PO TID fluticasone propionate 50 mcg/actuation (Flonase Allergy Relief) 1 spray intranasal DAILY glycopyrrolate 1 mg PO BID metoprolol tartrate 25 mg PO BID midodrine 5 mg PO TID 90 days mirtazapine 22.5 mg (1.5 x 15 mg) PO BEDTIME omeprazole 20 mg PO DAILY polyethylene glycol 3350 (Miralax) 17 grams PO DAILY PRN HPI Comments Details: 74y/o male comes for follow up of parkinsons, REM behavior disorder.His BP has been stable with midodrine but reports increase in anxiety and has panic attacks.He takes clonazepam 0,5mg tid for anxiety . He reports generlaized weakness. He reports worsening of his swallowing and has more GERD symptoms.His drooling is better with glycopyrollate He is on escitalopram 20mg qd. His dizziness is better with midodrine . droxidopa was not approved. His bowel movements are better with change in diet- increased fiber intake 1-2 kiwis a day. botox did not help with drooling. He is able to go back to sleep. His leg cramps are better.. No falls. speech is softer. He is independent in all his ADLs. He still has daily REM behavior disorder, milder - no falls. Memory is good No hallucinations He is not exercising and does not eat or drink .. [facility] Medical History (Updated 11/17/24 @ 13:52 by TAMICA Munoz) Hx of cardiac pacemaker Parkinson's disease with neurogenic orthostatic hypotension Anxiety Vertigo Parkinson's disease REM behavioral disorder Tremors of nervous system Arthritis Surgical History Hx of bilateral hip replacements Family History Father Cancer Mother Depression Dementia Social History Household Members: Spouse Alcohol intake: former Patient Tobacco Use Status: Never used Tobacco Physical Exam Vital Signs: Last Vital Signs Pulse 70 03/30/25 10:49 BP 122/76 03/30/25 10:49 Pulse Ox 96 03/30/25 10:49 Oxygen Delivery Method Room Air 03/30/25 10:49 BMI result Body Mass Index 21.4 Const General: cooperative Orientation/consciousness: patient oriented x3 Neuro Other: UPDRS - 3 moderately decreased facial expression, antecollis, restricted range of motion neck Mild dyskinesia Speech 2.Monotone,slurred but understandable,moderately impaired Facial expression 0-normal 1-Minimal hypomimia, poker face 2-Slight but definite abnormal diminution of facial expression 3-Moderate hypomimia,lips parted some of the time 4-Masked or fixed facies withs evere loss of facialexpression, lips parted more than 1/4 inch Rest Tremors( head, Upper, lower ) 0- absent 1-Slight and infrequent 2-Mild in amplitude and persistent Left UE 3-Moderate in amplitude and present most of the time 4-Marked amplitude and present most of the time Action and Postural tremors 0-none 1-Slight with action 2-Moderate with action 3-Moderate with posture and action 4-Marked , interferes with feeding Rigidity 0-Absent 1-Slight or detectable only when activated by mirror movements 2-Mild to Moderate L>R 3-Marked, but full ROM achieved L>R 4-Severe, range of motion achieved with difficulty Finger Taps 0-normal 1-Mild slowing an gaby reductionin amplitude 2-Moderately impaired. Early fatiguing and occasional arrests in movement L>R 3-Severely impaired. Frequent hesitation in initiating movements or arrests in ongoing movement. 4-can barely perform the task Hand movements 0-normal 1-mild slowing and or reduction in amplitude 2-Moderately impaired.Definite and early fatiguing, may have occasional arrests in movement. 3-Severely impaired.Frequent hesitation in initiating or arrests in movement.L>R 4-can barely perform the task Rapid Alternating Movements of Hands 0-normal 1-Mild slowing and or reduction in amplitude 2-Moderately impaired.Definite and early fatiguing. 2-Moderately impaired. Definite and early fatiguing. May have occasional arrests in movement. 3-severely impaired.Frequent hesitation in initiating movements or arrests in ongoing movement. 4-can barely perform the task Leg agility 0-normal 1-mild slowing and reduction in amplitude 2-moderately impaired.Definite and early fatiguing , may have occasional arrest in movement. 3-severely impaired.Frequent hesitation in initiating movements or arrests in ongoing movement. 4-can barely perform the task Arising from a chair 0-Normal 1-Slow or may need more than 1 attempt 2-Pushes self up from arms of seat 3-Tends to fall back and may have to try more than one time,but can get up with out difficulty 4-Unable to stand without help Posture 0-normal 1-slightly stooped, could be normal for an older person 2-moderately stooped posture, definitely abnormal, can be leaning to one side 3-severely stooped posture with kyphosis, can be moderately leaning to one side 4-Marked flexion with extreme abnormal posture Gait 0-normal 1-walks slowly,may shuffle with short steps, but no festination or propulsion 2-walks with difficulty,but requires little or no assistance, may have short steps, festination or propulsion 3-severe, needs assistance 4-cannot walk even with assistance Postural stability 0-normal 1-retropulsion but recovers unaided 2-absence of postural response,will fail if not caught by the examiner 3-very unstable,tends to lose balance spontaneously 4-unable to stand without assistance Body bradykinesia and hypokinesia 0-none 1-minimal slowness,giving movement a deliberate character,could be normal for some persons.Possible reduced amplitude 2-Mild degree of slowness and poverty of movement or some reduced amplitude 3-moderate slowness,poverty or small amplitude of movement 4-marked slowness, poverty or small amplitude of movement. General: patient oriented x3 Assessment & Plan Assessment & Plan (1) Parkinson's disease with neurogenic orthostatic hypotension: Code(s): G90.3 - Multi-system degeneration of the autonomic nervous system Category: Medical (2) REM behavioral disorder: Code(s): G47.52 - REM sleep behavior disorder Category: Medical Plan: he stopped melatonin - says his episodes are not as frequent (3) Drooling: Code(s): K11.7 - Disturbances of salivary secretion Category: Medical (4) Anxiety: Code(s): F41.9 - Anxiety disorder, unspecified Category: Medical Plan sinemet 25/100 2 tabs 5 times a day- 7am,10am,1pm,4pm,7pm Increase caffiene and salt intake Increase physical activity Decrease clonazepam 0.5 mg 1/2 tab tid as needed Midodrine 5 mg 7am 11am 3pm glycopyrrolate 1mg bid escitalopram 20mg qd Increase mirtazapine 22.5 mg qhs will consider rytary or Vyalev speech and swallowing exercises Home exercise Orders: [facility]errals [facility] Referral G90.3 - Multi-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
== END 2025-03-30 11:34 | disposition home or self-care (01) ==
LOC: HO.HSMS 10:54
PROVIDERS: PCP Physician Assistant; Visit Provider Psychiatry & Neurology Neurology
DX: G90.3 Multi-system degeneration of the autonomic nervous system (principal); G47.52 REM sleep behavior disorder; K11.7 Disturbances of salivary secretion; F41.9 Anxiety disorder, unspecified
CPT/HCPCS: 99214; G2211

== ENCOUNTER → 2025-03-30 10:53 | Outpatient (BNVA) | payer MEDICARE, SELFPAY | PROVIDERS: PCP Physician Assistant; Visit Provider Psychiatry & Neurology Neurology | DX: G90.3 Multi-system degeneration of the autonomic nervous system (principal); G47.52 REM sleep behavior disorder; K11.7 Disturbances of salivary secretion; F41.9 Anxiety disorder, unspecified | CPT/HCPCS: 99212 ==

== ENCOUNTER → 2025-04-14 23:59 | Outpatient (BNV) | payer MEDICARE, SELFPAY | PROVIDERS: PCP Physician Assistant; Visit Provider Psychiatry & Neurology Neurology | DX: G20.A1 Parkinson's disease without dyskinesia, without mention of fluctuations (principal); G90.3 Multi-system degeneration of the autonomic nervous system; G47.52 REM sleep behavior disorder | CPT/HCPCS: G0180 ==